=== PATIENT | male | born 1960 | race Caucasian/White ===

== ENCOUNTER 2016-09-03 14:25 | Inpatient (IN) | payer OTHER ==
[2016-09-03 18:14] VITALS: BMI 21.9
--- NOTE | 2016-09-03 19:13 | HP ---
CIWA Score - CIWA Score Nausea/Vomitin-Mild Nausea/No Vomiting Muscle Tremors: 4-Moderate,w/Arms Extend Anxiety: 4-Mod. Anxious/Guarded Agitation: 4-Moderately Restless Paroxysmal Sweats: 1-Minimal Palms Moist Orientation: 1-Uncertain about Date Tacttile Disturbances: 0-None Auditory Disturbances: 0-None Visual Disturbances: 0-None Headache: 0-None Present CIWA-Ar Total Score: 15 Admission ROS BHS - HPI Chief Complaint: WITHDRAWAL SX Allergies/Adverse Reactions: Allergies Allergy/AdvReac Type Severity Reaction Status Date / Time cat dander AdvReac Verified 09/03/16 19:12 History of Present Illness: 56 YEARS OLD MALE WITH LONG HISTORY OF ALCOHOL NICOTINE DEPENDENCE HAS ASTHMA ON METHADONE MAINTENANCE PROGRAM 190 MG HAS DEPRESSION IS ADMITTED TO DETOX Exam Limitations: No Limitations - Ebola screening Have you traveled outside of the country in the last 21 days: No Have you had contact with anyone from an Ebola affected area: No Have you been sick,other than usual withdrawal symptoms: No Do you have a fever: No - Review of Systems Constitutional: Chills, Changes in sleep, Weight Stable EENT: reports: Blurred Vision (NEED EYE GLASSES) Respiratory: reports: SOB with Exertion, Productive cough (WHITISH + YELLOWISH) Cardiac: reports: No Symptoms Reported GI: reports: Nausea, Poor Fluid Intake, Indigestion, Abdominal cramping : reports: No Symptoms Reported Musculoskeletal: reports: Back Pain, Joint Pain, Muscle Pain, Neck Pain Integumentary: reports: Change in Color (HANDS) Neuro: reports: Tremors Endocrine: reports: No Symptoms Reported Hematology: reports: No Symptoms Reported Psychiatric: reports: No Sypmtoms Reported, Judgement Intact, Depressed Other Systems: Reviewed and Negative Patient History - Patient Medical History Hx Anemia: No Hx Asthma: Yes Hx Chronic Obstructive Pulmonary Disease (COPD): Yes Hx Cancer: No Hx Cardiac Disorders: No Hx Congestive Heart Failure: No Hx Hypertension: No Hx Hypercholesterolemia: No Hx Pacemaker: No HX Cerebrovascular Accident: No Hx Seizures: No Hx Dementia: No Hx Diabetes: No Hx Gastrointestinal Disorders: No Hx Liver Disease: No Hx Genitourinary Disorders: No Hx Sexually Transmitted Disorders: No Hx Renal Disease (ESRD): No Hx Thyroid Disease: No Hx Human Immunodeficiency Virus (HIV): No Hx Hepatitis C: No Hx Depression: Yes Hx Suicide Attempt: No Hx Bipolar Disorder: No Hx Schizophrenia: No - Patient Surgical History Past Surgical History: Yes Hx Neurologic Surgery: No Hx Cataract Extraction: No Hx Cardiac Surgery: No Hx Lung Surgery: No Hx Breast Surgery: No Hx Breast Biopsy: No Hx Abdominal Surgery: Yes (LEFT INGUINAL HERNIA REPAIRED) Hx Appendectomy: No Hx Cholecystectomy: No Hx Genitourinary Surgery: No Hx Orthopedic Surgery: No Anesthesia Reaction: No - PPD History Previous Implant?: Yes Documented Results: Negative w/o proof Implanted On Prior R Admission?: No PPD to be Administered?: Yes - Smoking Cessation Smoking history: Current every day smoker Have you smoked in the past 12 months: Yes Aproximately how many cigarettes per day: 20 Cigars Per Day: 0 Hx Chewing Tobacco Use: No Initiated information on smoking cessation: Yes 'Breaking Loose' booklet given: 09/03/16 - Substance & Tx. History Hx Alcohol Use: Yes Hx Substance Use: No Substance Use Type: Alcohol, Heroin Hx Substance Use Treatment: No - Substances Abused Alcohol Route: Oral Frequency: Daily Amount used: 4 PINTS WISKY Age of first use: 14 Date of Last Use: 09/03/16 Family Disease History - Family Disease History Family Disease History: Other: Father ( ALCOHOL) Admission Physical Exam BHS - Vital Signs Vital Signs: Vital Signs - 24 hr 09/03/16 18:12 Temperature 96.8 F L Pulse Rate 87 Respiratory 20 Rate Blood Pressure 144/102 - Physical General Appearance: Yes: Appropriately Dressed, Mild Distress, Alcohol on Breath , Thin, Tremorous, Irritable, Sweating, Anxious HEENTM: Yes: Hearing grossly Normal, Normal ENT Inspection, Normocephalic, Normal Voice Respiratory: Yes: Chest Non-Tender, No Respiratory Distress, No Accessory Muscle Use, Wheezing, Expiration Neck: Yes: Supple, Trachea in good position Breast: Yes: Breasts Symetrical Cardiology: Yes: Regular Rhythm, Regular Rate, S1, S2 Abdominal: Yes: Non Tender, Soft Genitourinary: Yes: Within Normal Limits Back: Yes: Normal Inspection Musculoskeletal: Yes: full range of Motion, Gait Steady Extremities: Yes: Normal Range of Motion, Non-Tender, Tremors Neurological: Yes: Alert, Motor Strength 5/5, Normal Response, Depressed Affect Integumentary: Yes: Warm Lymphatic: Yes: Within Normal Limits - Diagnostic (1) Alcohol dependence with uncomplicated withdrawal Current Visit: Yes Status: Acute (2) Methadone maintenance therapy patient Current Visit: Yes Status: Chronic Comment: 190 MG VERIFICATION PENDING (3) Nicotine dependence Current Visit: Yes Status: Acute Qualifiers: Nicotine product type: cigarettes Substance use status: in withdrawal Qualified Code(s): F17.213 - Nicotine dependence, cigarettes, with withdrawal (4) Asthma Current Visit: Yes Status: Chronic Qualifiers: Asthma severity: mild persistent Asthma complication type: with status asthmaticus Qualified Code(s): J45.32 - Mild persistent asthma with status asthmaticus (5) COPD (chronic obstructive pulmonary disease) Current Visit: Yes Status: Chronic Qualifiers: COPD type: emphysema Emphysema type: unilateral Qualified Code(s ): J43.0 - Unilateral pulmonary emphysema [MacLeod's syndrome] (6) Cat scratch of forearm Current Visit: Yes Status: Chronic Qualifiers: Encounter type: subsequent encounter Laterality: unspecified laterality Qualified Code(s): S50.819D - Abrasion of unspecified forearm , subsequent encounter; W55.03XD - Scratched by cat, subsequent encounter (7) Hypertension Current Visit: Yes Status: Chronic Qualifiers: Hypertension type: unspecified secondary hypertension Qualified Code (s): I15.9 - Secondary hypertension, unspecified; I15 - Secondary hypertension Comment: ALCOHOL RELATED (8) Depression (emotion) Current Visit: Yes Status: Suspected Qualifiers: Depression Type: dysthymia Qualified Code(s): F34.1 - Dysthymic disorder Cleared for Admission BHS - Detox or Rehab [facility] Level of Care: Medically Managed Detox Regimen/Protocol: Librium [facility] Breath Alcohol Content Breath Alcohol Content: 0.241 Urine Drug Screen - Results Drug Screen Negative: No Urine Drug Screen Results: MTD-Methadone
[2016-09-03] MEDS ORDERED: P-EPHED 60MG/TRIPROLIDI 2.5MG TABLET PO PRN (19:25)
[2016-09-03] MEDS ORDERED: MAG HYDROX/AL HYDROX/SIMETH 30 ML UNIT-DOSE CUP PO PRN (19:25)
[2016-09-03] MEDS ORDERED: LOPERAMIDE HCL 2 MG CAPSULE PO PRN (19:25)
[2016-09-03] MEDS ORDERED: MAGNESIUM CITRATE 300 ML BOTTLE PO PRN (19:25)
[2016-09-03] MEDS ORDERED: diphenhydrAMINE HCL 50 MG CAPSULE PO PRN (19:25)
[2016-09-03] MEDS ORDERED: chlordiazePOXIDE HCL 25 MG CAPSULE PO ONE (19:25)
[2016-09-03] MEDS ORDERED: hydrOXYzine PAMOATE 50 MG CAPSULE (FP) PO PRN (19:25)
[2016-09-03] MEDS ORDERED: MENTHOL/PHENOL 1 EACH UD MM PRN (19:25)
[2016-09-03] MEDS ORDERED: IBUPROFEN 400 MG TABLET (FP) PO PRN (19:25)
[2016-09-03] MEDS ORDERED: ACETAMINOPHEN 325 MG TABLET (FP) PO PRN (19:25)
[2016-09-03] MEDS ORDERED: guaiFENesin/D-METHORPHAN HB 10 ML UNIT-DOSE CUPS PO PRN (19:25)
[2016-09-03] MEDS ORDERED: ALBUTEROL SO4 6.7 GM HFA INHALER IH PRN (19:27)
[2016-09-03] MEDS ORDERED: ALBUTEROL SO4 2.5/IPRATROPIUM 0.5 INH SOL 3 ML VIAL.NEB. NEB PRN (19:27)
[2016-09-03] MEDS ORDERED: BACITRACIN 0.9 GM PACKET TP ONE (19:28)
[2016-09-03] MEDS ORDERED: cloNIDine HCL 0.1 MG TABLET PO PRN (19:33)
[2016-09-03 21:18] LABS: URINE APPEARANCE CLEAR; URINE BILIRUBIN NEGATIVE (NEGATIVE); URINE BLOOD NEGATIVE (NEGATIVE); URINE COLOR AMBER; URINE GLUCOSE (UA) NEGATIVE (NEGATIVE); URINE KETONE NEGATIVE (NEGATIVE); URINE LEUK ESTERASE NEGATIVE (NEGATIVE); URINE NITRITE NEGATIVE (NEGATIVE); URINE UROBILINOGEN 2.0 E.U/dl E.U./dl (0.2-1.0)
[2016-09-03 21:38] LABS: URINE PROTEIN 2+ (NEGATIVE)
[2016-09-03 21:44] LABS: URINE HYALINE CAST 48 /lpf; URINE MUCUS MANY; URINE RBC 3 /hpf (0-3); URINE WBC 9 /hpf (3-5)
[2016-09-03] MEDS: THIAMINE HCL 100 MG TABLET (FP) PO SCH (23:00)
[2016-09-03] MEDS: chlordiazePOXIDE HCL 25 MG CAPSULE PO SCH (23:02)
[2016-09-04] MEDS: chlordiazePOXIDE HCL 25 MG CAPSULE PO SCH ×4 (05:42→22:40)
[2016-09-04] MEDS ORDERED: METHADONE HCL 10 MG TABLET PO ONE (09:10)
[2016-09-04] MEDS ORDERED: METHADONE 160 MG, METHADONE 30 MG PO ONE (09:20)
[2016-09-04] MEDS ORDERED: METHADONE HCL 40 MG DISPERSABLE TABLET ONE (09:56)
[2016-09-04] MEDS ORDERED: METHADONE HCL 10 MG TABLET ONE (09:56)
[2016-09-04] MEDS: NICOTINE 21 MG/24 HOURS TOPICAL PATCH TD SCH (09:58)
[2016-09-04] MEDS: PRENATAL VITAMINS W/ FOLIC ACID TABLET (FP) PO SCH (09:58)
[2016-09-04 10:06] LABS: MCHC 34.8 g/dl (32.0-35.9); MEAN CELL VOLUME 97.9 fl (80-96); MEAN PLT VOLUME 8.3 fl (7.5-11.1); PLATELET COUNT 121 K/MM3 (134-434); RDW 14.4 % (11.9-15.9); WHITE BLOOD COUNT 4.4 K/mm3 (4.0-10.0)
--- NOTE | 2016-09-04 11:01 | PN ---
[facility] CIWA - CIWA Score Nausea/Vomitin-No Nausea/No Vomiting Muscle Tremors: 4-Moderate,w/Arms Extend Anxiety: 4-Mod. Anxious/Guarded Agitation: 4-Moderately Restless Paroxysmal Sweats: 1-Minimal Palms Moist Orientation: 0-Oriented Tacttile Disturbances: 3-Moderate Itch/Numb/Burn Auditory Disturbances: 0-None Visual Disturbances: 0-None Headache: 0-None Present CIWA-Ar Total Score: 16 S Progress Note (SOAP) Subjective: ANXIETY,SWEATS,TREMORS,INTERMITTENT SLEEP. Objective: 09/04/16 11:01 Vital Signs Temperature 96.4 F L 09/04/16 09:47 Pulse Rate 85 09/04/16 09:47 Respiratory Rate 16 09/04/16 09:47 Blood Pressure 175/93 09/04/16 09:47 O2 Sat by Pulse Oximetry (%) Laboratory Last Values WBC 4.4 K/mm3 (4.0-10.0) 09/04/16 07:00 RBC 4.01 M/mm3 (4.00-5.60) 09/04/16 07:00 Hgb 13.7 GM/dL (11.7-16.9) 09/04/16 07:00 Hct 39.3 % (35.4-49) 09/04/16 07:00 MCV 97.9 fl (80-96) H 09/04/16 07:00 MCHC 34.8 g/dl (32.0-35.9) 09/04/16 07:00 RDW 14.4 % (11.9-15.9) 09/04/16 07:00 Plt Count 121 K/MM3 (134-434) L 09/04/16 07:00 MPV 8.3 fl (7.5-11.1) 09/04/16 07:00 Urine Color Muna 09/03/16 20:52 Urine Appearance Clear 09/03/16 20:52 Urine pH 5.0 (5.0-8.0) 09/03/16 20:52 Ur Specific [place] >= 1.030 (1.005-1.025) H 09/03/16 20:52 Urine Protein 2+ (NEGATIVE) H 09/03/16 20:52 Urine Glucose (UA) Negative (NEGATIVE) 09/03/16 20:52 Urine Ketones Negative (NEGATIVE) 09/03/16 20:52 Urine Blood Negative (NEGATIVE) 09/03/16 20:52 Urine Nitrite Negative (NEGATIVE) 09/03/16 20:52 Urine Bilirubin Negative (NEGATIVE) 09/03/16 20:52 Urine Urobilinogen 2.0 e.u/dl E.U./dl (0.2-1.0) 09/03/16 20:52 Ur Leukocyte Esterase Negative (NEGATIVE) 09/03/16 20:52 Urine RBC 3 /hpf (0-3) 09/03/16 20:52 Urine WBC 9 /hpf (3-5) 09/03/16 20:52 Hyaline Casts 48 /lpf 09/03/16 20:52 Urine Mucus Many 09/03/16 20:52 RPR Titer Nonreactive (NONREACTIVE) 09/04/16 07:00 Assessment: 09/04/16 11:01 WITHDRAWAL SX Plan: CONTINUE DETOX
[2016-09-04] MEDS ORDERED: cloNIDine HCL 0.1 MG TABLET PO ONE (11:03)
[2016-09-04 11:10] LABS: ALBUMIN 3.4 g/dl (3.4-5.0); ANION GAP 11 (8-16); CALCIUM 8.7 mg/dL (8.5-10.1); CO2 33 mmol/L (21-32); COCKROFT - GAULT 122.47; CREATININE 0.7 mg/dL (0.7-1.3); GLUCOSE,RANDOM 114 mg/dL (74-106); SGOT/AST 101 U/L (15-37); TOT PROT 6.4 g/dl (6.4-8.2)
[2016-09-04 11:11] LABS: ALK PHOS 115 U/L (45-117); SGPT/ALT 61 U/L (12-78)
--- NOTE | 2016-09-04 11:27 | CONSULT ---
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 Substance Abuse History: - Smoking Cessation. Smoking history: Current every day smoker. Have you smoked in the past 12 months: Yes. Aproximately how many cigarettes per day: 20. Cigars Per Day: 0. Hx Chewing Tobacco Use: No. Initiated information on smoking cessation: Yes. 'Breaking Loose' booklet given : 09/03/16. - Substance & Tx. History. Hx Alcohol Use: Yes. Hx Substance Use : No. Substance Use Type: Alcohol, Heroin. Hx Substance Use Treatment: No. - Substances Abused. Alcohol. Route: Oral. Frequency: Daily. Amount used: 4 PINTS WISKY. Age of first use: 14. Date of Last Use: 09/03/16. Confirmed by patient. Medical History: COPD,bronchial asthma,hypertension and a history of left inguinal herniorraphy. Psychiatric History: Patient denies history of psychiatric hospitalizations.Diagnosed with MDD.Mr Noble indicates past exposure to antidepressant drugs but could not recall names.Presents with an extended history of absence of psychiatric OPD care.Patient denies history of suicide attempts.Currently on methadone maintenance (190 mg/day). Physical/Sexual Abuse/Trauma History: Patient denies history of abuse. Additional Comment: Urine Drug Screen Results: MTD-Methadone.Noted. Mental Status Exam - Mental Status Exam Alert and Oriented to: Time, Place, Person Cognitive Function: Good Patient Appearance: Unkempt, Disheveled Mood: Nervous, Withdrawn, Anxious Affect: Mood Congruent, Constricted Patient Behavior: Fatigued, Cooperative Speech Pattern: Clear Voice Loudness: Normal Thought Process: Goal Oriented Thought Disorder: Not Present Hallucinations: Denies Suicidal Ideation: Denies Homicidal Ideation: Denies Insight/Judgement: Poor Sleep: Poorly, Difficulty falling asleep Appetite: Fair Muscle strength/Tone: Normal Gait/Station: Normal Psychiatric Findings - Problem List ([place] 1, 2,3) (1) Alcohol dependence with uncomplicated withdrawal Current Visit: Yes Status: Acute (2) Nicotine dependence Current Visit: Yes Status: Acute Qualifiers: Nicotine product type: cigarettes Substance use status: in withdrawal Qualified Code(s): F17.213 - Nicotine dependence, cigarettes, with withdrawal (3) Opioid dependence on agonist therapy Current Visit: Yes Status: Acute (4) Substance induced mood disorder Current Visit: Yes Status: Acute (5) Asthma Current Visit: Yes Status: Chronic Qualifiers: Asthma severity: mild persistent Asthma complication type: with status asthmaticus Qualified Code(s): J45.32 - Mild persistent asthma with status asthmaticus (6) COPD (chronic obstructive pulmonary disease) Current Visit: Yes Status: Chronic Qualifiers: COPD type: emphysema Emphysema type: unilateral Qualified Code(s ): J43.0 - Unilateral pulmonary emphysema [MacLeod's syndrome] (7) Cat scratch of forearm Current Visit: Yes Status: Chronic Qualifiers: Encounter type: subsequent encounter Laterality: unspecified laterality Qualified Code(s): S50.819D - Abrasion of unspecified forearm , subsequent encounter; W55.03XD - Scratched by cat, subsequent encounter (8) Hypertension Current Visit: Yes Status: Chronic Qualifiers: Hypertension type: unspecified secondary hypertension Qualified Code (s): I15.9 - Secondary hypertension, unspecified; I15 - Secondary hypertension Comment: ALCOHOL RELATED (9) Insomnia Current Visit: Yes Status: Acute - Initial Treatment Plan Initial Treatment Plan: Psychoeducation.detoxification.Ambien 10 mg po hs prn.Patient is informed of potential for parasomnias.He agrees with this careplan.Observation.
--- NOTE | 2016-09-04 11:45 | EKG ---
Test Reason : Blood Pressure : / mmHG Vent. Rate : 071 BPM Atrial Rate : 071 BPM P-R Int : 168 ms QRS Dur : 116 ms QT Int : 438 ms P-R-T Axes : 072 070 068 degrees QTc Int : 475 ms NORMAL SINUS RHYTHM INCOMPLETE RIGHT BUNDLE BRANCH BLOCK BORDERLINE ECG NO PREVIOUS ECGS AVAILABLE Confirmed by DOREEN LLANES, EMILY ([id number]) on 09/04/2016 11:44:53 AM Referred By: Confirmed By:EMILY LOGAN MD
[2016-09-04] MEDS: cloNIDine HCL 0.1 MG TABLET PO SCH (22:40)
[2016-09-04] MEDS: THIAMINE HCL 100 MG TABLET (FP) PO SCH (22:40)
[2016-09-04] MEDS: ZOLPIDEM TARTRATE 10 MG TABLET (PARK CARE ONLY) PO PRN (22:40)
[2016-09-05] MEDS: chlordiazePOXIDE HCL 25 MG CAPSULE PO PRN ×2 (03:01→09:34)
[2016-09-05] MEDS ORDERED: METHADONE HCL 40 MG DISPERSABLE TABLET ONE (04:34)
[2016-09-05] MEDS ORDERED: METHADONE HCL 10 MG TABLET ONE (04:34)
[2016-09-05] MEDS: METHADONE 160 MG, METHADONE 30 MG PO SCH (05:32)
[2016-09-05] MEDS: chlordiazePOXIDE HCL 25 MG CAPSULE PO SCH ×3 (05:32→17:18)
[2016-09-05] MEDS: NICOTINE POLACRILEX 4 MG GUM BC PRN (05:36)
[2016-09-05] MEDS ORDERED: METHADONE HCL 10 MG TABLET PO SCH (06:00)
[2016-09-05] MEDS: cloNIDine HCL 0.1 MG TABLET PO SCH ×2 (10:35→22:13)
[2016-09-05] MEDS: PRENATAL VITAMINS W/ FOLIC ACID TABLET (FP) PO SCH (10:35)
[2016-09-05] MEDS: NICOTINE 21 MG/24 HOURS TOPICAL PATCH TD SCH (10:35)
--- NOTE | 2016-09-05 11:16 | PN ---
[facility] CIWA - CIWA Score Nausea/Vomitin Muscle Tremors: 3 Anxiety: 3 Agitation: 2 Paroxysmal Sweats: 1-Minimal Palms Moist Orientation: 0-Oriented Tacttile Disturbances: 1-Very Mild Itch/Numbness Auditory Disturbances: 1-Very Mild Visual Disturbances: 1-Very Mild Sensitivity Headache: 2-Mild CIWA-Ar Total Score: 17 BHS Progress Note (SOAP) Subjective: ALERT,IRRITABLE,ANXIOUS,INTERRUPTED SLEEP,TREMOR Objective: 09/05/16 11:15 Vital Signs Temperature 97.5 F L 09/05/16 09:28 Pulse Rate 88 09/05/16 09:28 Respiratory Rate 18 09/05/16 09:28 Blood Pressure 134/84 09/05/16 09:28 O2 Sat by Pulse Oximetry (%) Laboratory Last Values WBC 4.4 K/mm3 (4.0-10.0) 09/04/16 07:00 RBC 4.01 M/mm3 (4.00-5.60) 09/04/16 07:00 Hgb 13.7 GM/dL (11.7-16.9) 09/04/16 07:00 Hct 39.3 % (35.4-49) 09/04/16 07:00 MCV 97.9 fl (80-96) H 09/04/16 07:00 MCHC 34.8 g/dl (32.0-35.9) 09/04/16 07:00 RDW 14.4 % (11.9-15.9) 09/04/16 07:00 Plt Count 121 K/MM3 (134-434) L 09/04/16 07:00 MPV 8.3 fl (7.5-11.1) 09/04/16 07:00 Sodium 140 mmol/L (136-145) 09/04/16 07:00 Potassium 3.7 mmol/L (3.5-5.1) 09/04/16 07:00 Chloride 96 mmol/L (98-107) L 09/04/16 07:00 Carbon Dioxide 33 mmol/L (21-32) H 09/04/16 07:00 Anion Gap 11 (8-16) 09/04/16 07:00 BUN 15 mg/dL (7-18) 09/04/16 07:00 Creatinine 0.7 mg/dL (0.7-1.3) 09/04/16 07:00 Creat Clearance w eGFR > 60 (>60) 09/04/16 07:00 Random Glucose 114 mg/dL (74-106) H 09/04/16 07:00 Calcium 8.7 mg/dL (8.5-10.1) 09/04/16 07:00 Total Bilirubin 1.0 mg/dL (0.2-1.0) 09/04/16 07:00 AST 101 U/L (15-37) H 09/04/16 07:00 ALT 61 U/L (12-78) 09/04/16 07:00 Alkaline Phosphatase 115 U/L (45-117) 09/04/16 07:00 Total Protein 6.4 g/dl (6.4-8.2) 09/04/16 07:00 Albumin 3.4 g/dl (3.4-5.0) 09/04/16 07:00 Urine Color Muna 09/03/16 20:52 Urine Appearance Clear 09/03/16 20:52 Urine pH 5.0 (5.0-8.0) 09/03/16 20:52 Ur Specific [place] >= 1.030 (1.005-1.025) H 09/03/16 20:52 Urine Protein 2+ (NEGATIVE) H 09/03/16 20:52 Urine Glucose (UA) Negative (NEGATIVE) 09/03/16 20:52 Urine Ketones Negative (NEGATIVE) 09/03/16 20:52 Urine Blood Negative (NEGATIVE) 09/03/16 20:52 Urine Nitrite Negative (NEGATIVE) 09/03/16 20:52 Urine Bilirubin Negative (NEGATIVE) 09/03/16 20:52 Urine Urobilinogen 2.0 e.u/dl E.U./dl (0.2-1.0) 09/03/16 20:52 Ur Leukocyte Esterase Negative (NEGATIVE) 09/03/16 20:52 Urine RBC 3 /hpf (0-3) 09/03/16 20:52 Urine WBC 9 /hpf (3-5) 09/03/16 20:52 Hyaline Casts 48 /lpf 09/03/16 20:52 Urine Mucus Many 09/03/16 20:52 RPR Titer Nonreactive (NONREACTIVE) 09/04/16 07:00 Assessment: 09/05/16 11:16 WITHDRAWAL SYMPTOM Plan: CONTINUE DETOX,REPEAT UA
[2016-09-05 18:05] LABS: URINE APPEARANCE CLEAR; URINE BILIRUBIN NEGATIVE (NEGATIVE); URINE BLOOD NEGATIVE (NEGATIVE); URINE COLOR YELLOW; URINE GLUCOSE (UA) NEGATIVE (NEGATIVE); URINE KETONE NEGATIVE (NEGATIVE); URINE NITRITE NEGATIVE (NEGATIVE); URINE PROTEIN NEGATIVE (NEGATIVE); URINE UROBILINOGEN NEGATIVE E.U./dl (0.2-1.0)
[2016-09-05 18:17] LABS: URINE LEUK ESTERASE 1+ (NEGATIVE)
[2016-09-05 18:29] LABS: URINE MUCUS MODERATE; URINE RBC 1 /hpf (0-3); URINE WBC 6 /hpf (3-5)
[2016-09-05] MEDS: ZOLPIDEM TARTRATE 10 MG TABLET (PARK CARE ONLY) PO PRN (22:13)
[2016-09-05] MEDS: chlordiazePOXIDE 5 MG CAPSULE PO SCH (22:13)
[2016-09-05] MEDS: THIAMINE HCL 100 MG TABLET (FP) PO SCH (22:14)
[2016-09-06] MEDS: chlordiazePOXIDE HCL 25 MG CAPSULE PO PRN (01:01)
[2016-09-06] MEDS ORDERED: METHADONE HCL 10 MG TABLET ONE (04:14)
[2016-09-06] MEDS ORDERED: METHADONE HCL 40 MG DISPERSABLE TABLET ONE (04:15)
[2016-09-06] MEDS: METHADONE 160 MG, METHADONE 30 MG PO SCH (05:44)
[2016-09-06] MEDS: chlordiazePOXIDE 5 MG CAPSULE PO SCH ×3 (05:44→17:24)
[2016-09-06] MEDS: NICOTINE POLACRILEX 4 MG GUM BC PRN ×2 (05:47→22:52)
[2016-09-06] MEDS: MAGNESIUM HYDROX 2400MG/30ML ORAL SUSPENSION 30 ML CUP PO PRN (09:06)
[2016-09-06] MEDS: PRENATAL VITAMINS W/ FOLIC ACID TABLET (FP) PO SCH (10:42)
[2016-09-06] MEDS: NICOTINE 21 MG/24 HOURS TOPICAL PATCH TD SCH (10:42)
[2016-09-06] MEDS: cloNIDine HCL 0.1 MG TABLET PO SCH ×2 (10:42→22:47)
[2016-09-06] MEDS: BACITRACIN 0.9 GM PACKET TP SCH ×2 (10:42→22:48)
--- NOTE | 2016-09-06 12:19 | PN ---
BHS Progress Note (SOAP) Subjective: Tremors, Stomach Cramping, Interrupted Sleep, Body Aches, Sweating. Objective: PT. A & O X 3, OBSERVED AMBULATING ON UNIT. PT. DENIES ANY UNUSUAL SYMPTOMS (FREQUENCY, URGENCY, INCONTINENCE, BURNING, PAIN ). 09/06/16 12:17 Vital Signs Temperature 97.0 F L 09/06/16 09:19 Pulse Rate 77 09/06/16 09:19 Respiratory Rate 18 09/06/16 09:19 Blood Pressure 106/65 09/06/16 09:19 O2 Sat by Pulse Oximetry (%) Laboratory Tests 09/03/16 09/04/16 09/04/16 20:52 07:00 07:00 WBC 4.4 RBC 4.01 Hgb 13.7 Hct 39.3 MCV 97.9 H MCHC 34.8 RDW 14.4 Plt Count 121 L MPV 8.3 Sodium 140 Potassium 3.7 Chloride 96 L Carbon Dioxide 33 H Anion Gap 11 BUN 15 Creatinine 0.7 Creat Clearance w eGFR > 60 Random Glucose 114 H Calcium 8.7 Total Bilirubin 1.0 AST 101 H ALT 61 Alkaline Phosphatase 115 Total Protein 6.4 Albumin 3.4 Urine Color Muna Urine Appearance Clear Urine pH 5.0 Ur Specific [place] >= 1.030 H Urine Protein 2+ H Urine Glucose (UA) Negative Urine Ketones Negative Urine Blood Negative Urine Nitrite Negative Urine Bilirubin Negative Urine Urobilinogen 2.0 e.u/dl Ur Leukocyte Esterase Negative Urine RBC 3 Urine WBC 9 Hyaline Casts 48 Urine Mucus Many RPR Titer 09/04/16 09/05/16 07:00 13:20 WBC RBC Hgb Hct MCV MCHC RDW Plt Count MPV Sodium Potassium Chloride Carbon Dioxide Anion Gap BUN Creatinine Creat Clearance w eGFR Random Glucose Calcium Total Bilirubin AST ALT Alkaline Phosphatase Total Protein Albumin Urine Color Yellow Urine Appearance Clear Urine pH 5.0 Ur Specific Hart 1.015 Urine Protein Negative Urine Glucose (UA) Negative Urine Ketones Negative Urine Blood Negative Urine Nitrite Negative Urine Bilirubin Negative Urine Urobilinogen Negative Ur Leukocyte Esterase 1+ H Urine RBC 1 Urine WBC 6 Hyaline Casts Urine Mucus Moderate RPR Titer Nonreactive LABS NOTED. RESULTS OF REPEAT UA (09/05/2016) NOTED. NO NEED FOR FURTHER ACTION AT THIS TIME. PATIENT ADVISED TO FOLLOW-UP WITH STATION HELPER AFTER DISCHARGE FROM DETOX. 09/06/16 12:19 09/06/16 14:52 09/06/16 14:53 09/06/16 14:56 09/06/16 14:59 Assessment: 09/06/16 12:17 WITHDRAWAL SYMPTOMS. Plan: CONTINUE DETOX. ADVISED PATIENT TO FOLLOW-UP WITH STATION HELPER AFTER DISCHARGE FROM DETOX FOR GENERAL MEDICAL ASSESSMENT AND FOR LOW ADMISSION PLATELET LEVEL AND FOR ELEVATED ADMISSION AST LEVEL.
[2016-09-06] MEDS: THIAMINE HCL 100 MG TABLET (FP) PO SCH (22:47)
[2016-09-06] MEDS: ZOLPIDEM TARTRATE 10 MG TABLET (PARK CARE ONLY) PO PRN (22:47)
[2016-09-06] MEDS: chlordiazePOXIDE HCL 10 MG CAPSULE PO SCH (22:48)
[2016-09-07] MEDS ORDERED: METHADONE HCL 10 MG TABLET ONE (04:40)
[2016-09-07] MEDS ORDERED: METHADONE HCL 40 MG DISPERSABLE TABLET ONE (04:40)
[2016-09-07] MEDS: chlordiazePOXIDE HCL 10 MG CAPSULE PO SCH ×2 (05:20→10:33)
[2016-09-07] MEDS: METHADONE 160 MG, METHADONE 30 MG PO SCH (05:20)
[2016-09-07] MEDS: NICOTINE POLACRILEX 4 MG GUM BC PRN (05:30)
[2016-09-07] MEDS: MAGNESIUM HYDROX 2400MG/30ML ORAL SUSPENSION 30 ML CUP PO PRN (05:30)
[2016-09-07 06:19] VITALS: PULSE 78
[2016-09-07 09:26] VITALS: BP 93/56; TEMP 96.8
[2016-09-07] MEDS: BACITRACIN 0.9 GM PACKET TP SCH (10:32)
[2016-09-07] MEDS: PRENATAL VITAMINS W/ FOLIC ACID TABLET (FP) PO SCH (10:33)
[2016-09-07] MEDS: NICOTINE 21 MG/24 HOURS TOPICAL PATCH TD SCH (10:33)
[2016-09-07] MEDS: cloNIDine HCL 0.1 MG TABLET PO SCH (10:33)
--- NOTE | 2016-09-07 10:59 | DS ---
[facility] Detox Discharge Summary Admission Date: 09/03/16 Discharge Date: 09/07/16 - History Present History: Alcohol Dependence, MMTP Pertinent Past History: Asthma COPD HTN - Physical Exam Results Vital Signs: Vital Signs Temperature 96.8 F L 09/07/16 09:25 Pulse Rate 78 09/07/16 09:25 Respiratory Rate 18 09/07/16 09:25 Blood Pressure 93/56 09/07/16 09:25 O2 Sat by Pulse Oximetry (%) Pertinent Admission Physical Exam Findings: Withdrawal sx. Laboratory Last Values WBC 4.4 K/mm3 (4.0-10.0) 09/04/16 07:00 RBC 4.01 M/mm3 (4.00-5.60) 09/04/16 07:00 Hgb 13.7 GM/dL (11.7-16.9) 09/04/16 07:00 Hct 39.3 % (35.4-49) 09/04/16 07:00 MCV 97.9 fl (80-96) H 09/04/16 07:00 MCHC 34.8 g/dl (32.0-35.9) 09/04/16 07:00 RDW 14.4 % (11.9-15.9) 09/04/16 07:00 Plt Count 121 K/MM3 (134-434) L 09/04/16 07:00 MPV 8.3 fl (7.5-11.1) 09/04/16 07:00 Sodium 140 mmol/L (136-145) 09/04/16 07:00 Potassium 3.7 mmol/L (3.5-5.1) 09/04/16 07:00 Chloride 96 mmol/L (98-107) L 09/04/16 07:00 Carbon Dioxide 33 mmol/L (21-32) H 09/04/16 07:00 Anion Gap 11 (8-16) 09/04/16 07:00 BUN 15 mg/dL (7-18) 09/04/16 07:00 Creatinine 0.7 mg/dL (0.7-1.3) 09/04/16 07:00 Creat Clearance w eGFR > 60 (>60) 09/04/16 07:00 Random Glucose 114 mg/dL (74-106) H 09/04/16 07:00 Calcium 8.7 mg/dL (8.5-10.1) 09/04/16 07:00 Total Bilirubin 1.0 mg/dL (0.2-1.0) 09/04/16 07:00 AST 101 U/L (15-37) H 09/04/16 07:00 ALT 61 U/L (12-78) 09/04/16 07:00 Alkaline Phosphatase 115 U/L (45-117) 09/04/16 07:00 Total Protein 6.4 g/dl (6.4-8.2) 09/04/16 07:00 Albumin 3.4 g/dl (3.4-5.0) 09/04/16 07:00 Urine Color Yellow 09/05/16 13:20 Urine Appearance Clear 09/05/16 13:20 Urine pH 5.0 (5.0-8.0) 09/05/16 13:20 Ur Specific [place] 1.015 (1.005-1.025) 09/05/16 13:20 Urine Protein Negative (NEGATIVE) 09/05/16 13:20 Urine Glucose (UA) Negative (NEGATIVE) 09/05/16 13:20 Urine Ketones Negative (NEGATIVE) 09/05/16 13:20 Urine Blood Negative (NEGATIVE) 09/05/16 13:20 Urine Nitrite Negative (NEGATIVE) 09/05/16 13:20 Urine Bilirubin Negative (NEGATIVE) 09/05/16 13:20 Urine Urobilinogen Negative E.U./dl (0.2-1.0) 09/05/16 13:20 Ur Leukocyte Esterase 1+ (NEGATIVE) H 09/05/16 13:20 Urine RBC 1 /hpf (0-3) 09/05/16 13:20 Urine WBC 6 /hpf (3-5) 09/05/16 13:20 Hyaline Casts 48 /lpf 09/03/16 20:52 Urine Mucus Moderate 09/05/16 13:20 RPR Titer Nonreactive (NONREACTIVE) 09/04/16 07:00 labs noted - Treatment Hospital Course: Detox Protocol Followed, Detoxed Safely, Responded well, Discharged Condition Good, Rehab Referral Accepted Patient has Accepted a Rehab Referral to: [facility] & IOP & 12 step meetings - Medication Discharge Medications: Ambulatory Orders Methadone [Dolophine -] 190 mg PO DAILY 09/03/16 - Diagnosis (1) Alcohol dependence with uncomplicated withdrawal Status: Acute (2) Insomnia Status: Acute (3) Nicotine dependence Status: Acute Qualifiers: Nicotine product type: cigarettes Substance use status: in withdrawal Qualified Code(s): F17.213 - Nicotine dependence, cigarettes, with withdrawal (4) Opioid dependence on agonist therapy Status: Acute (5) Substance induced mood disorder Status: Acute (6) Asthma Status: Chronic Qualifiers: Asthma severity: mild persistent Asthma complication type: with status asthmaticus Qualified Code(s): J45.32 - Mild persistent asthma with status asthmaticus (7) COPD (chronic obstructive pulmonary disease) Status: Chronic Qualifiers: COPD type: emphysema Emphysema type: panlobular Qualified Code(s ): J43.1 - Panlobular emphysema (8) Hypertension Status: Chronic Qualifiers: Hypertension type: unspecified secondary hypertension Qualified Code (s): I15.9 - Secondary hypertension, unspecified; I15 - Secondary hypertension - AMA Did Patient Leave Against Medical Advice: No
== END 2016-09-07 10:15 | disposition home or self-care (01) | DRG 773 ==
LOC: YASAS 14:25 → Y3N 19:59
PROVIDERS: ADMIT Internal Medicine; ATTEND Internal Medicine
PROC: HZ2ZZZZ Detoxification Services for Substance Abuse Treatment (ICD-10-PCS; principal; 2016-09-03)
DX: F10.230 Alcohol dependence with withdrawal, uncomplicated (principal); F11.20 Opioid dependence, uncomplicated; F17.213 Nicotine dependence, cigarettes, with withdrawal; J45.32 Mild persistent asthma with status asthmaticus; J43.1 Panlobular emphysema; I15.9 Secondary hypertension, unspecified; G47.00 Insomnia, unspecified; S50.819D Abrasion of unspecified forearm, subsequent encounter; W55.03XD Scratched by cat, subsequent encounter
CPT/HCPCS: 36415; 80053; 81003; 81015; 85027; 86593; 93005; 93010

== ENCOUNTER 2016-10-23 10:53 | Inpatient (IN) | payer OTHER ==
[2016-10-23 12:57] VITALS: BMI 23.3
--- NOTE | 2016-10-23 13:14 | HP ---
Admission [facility] Chief Complaint: i need help to come to rehab from alcohol Allergies/Adverse Reactions: Allergies Allergy/AdvReac Type Severity Reaction Status Date / Time No Known Allergies Allergy Verified 10/23/16 13:09 History of Present Illness: this 56 years old male with alcohol dependence,seeking rehab ,last treatment [facility] 10/10/16 to 10/15/16 mmtp 120 mgs/day,last medicated today nicotine dependence hepatitis c longest period sobriety depression Exam Limitations: No Limitations - Ebola screening Have you traveled outside of the country in the last 21 days: No Have you had contact with anyone from an Ebola affected area: No Have you been sick,other than usual withdrawal symptoms: No Do you have a fever: No - Review of Systems Constitutional: No Symptoms Reported, Loss of Appetite, Malaise, Night Sweats, Changes in sleep, Weakness EENT: reports: No Symptoms Reported Respiratory: reports: No Symptoms reported Cardiac: reports: No Symptoms Reported GI: reports: No Symptoms Reported : reports: No Symptoms Reported Musculoskeletal: reports: No Symptoms Reported Integumentary: reports: No Symptoms Reported Neuro: reports: No Symptoms reported Endocrine: reports: No Symptoms Reported Hematology: reports: No Symptoms Reported Psychiatric: reports: Depressed Patient History - Patient Medical History Hx Anemia: No Hx Asthma: Yes (on albuerol inhaler) Hx Chronic Obstructive Pulmonary Disease (COPD): Yes Hx Cancer: No Hx Cardiac Disorders: No Hx Congestive Heart Failure: No Hx Hypertension: Yes (non comploiance) Hx Hypercholesterolemia: No Hx Pacemaker: No HX Cerebrovascular Accident: No Hx Seizures: No Hx Dementia: No Hx Diabetes: No Hx Gastrointestinal Disorders: No Hx Liver Disease: No Hx Genitourinary Disorders: No Hx Sexually Transmitted Disorders: No Hx Renal Disease (ESRD): No Hx Thyroid Disease: No Hx Human Immunodeficiency Virus (HIV): No Hx Hepatitis C: No Hx Depression: Yes Hx Suicide Attempt: No Hx Bipolar Disorder: No Hx Schizophrenia: No Other Medical History: no suicidal,no homicidal - Patient Surgical History Past Surgical History: Yes Hx Neurologic Surgery: No Hx Cataract Extraction: No Hx Cardiac Surgery: No Hx Lung Surgery: No Hx Breast Surgery: No Hx Breast Biopsy: No Hx Abdominal Surgery: Yes (LEFT INGUINAL HERNIA REPAIRED) Hx Appendectomy: No Hx Cholecystectomy: No Hx Genitourinary Surgery: No Hx Orthopedic Surgery: No Anesthesia Reaction: No - PPD History Previous Implant?: Yes Documented Results: Negative w/proof Implanted On Prior [facility] Admission?: Yes Date: 09/05/16 Results: 0 mm PPD to be Administered?: No - Smoking Cessation Smoking history: Current every day smoker Have you smoked in the past 12 months: Yes Aproximately how many cigarettes per day: 20 Cigars Per Day: 0 Hx Chewing Tobacco Use: No Initiated information on smoking cessation: Yes 'Breaking Loose' booklet given: 10/23/16 - Substance & Tx. History Hx Alcohol Use: Yes Hx Substance Use: No Substance Use Type: Alcohol Hx Substance Use Treatment: Yes ([facility] 10/10/16 to 10/15/16) - Substances Abused Alcohol Route: Oral Frequency: Daily Amount used: 3-4 PINTS WHISKEY Age of first use: 50 Date of Last Use: 10/22/16 Family Disease History - Family Disease History Family Disease History: Other: Father ( ALCOHOL) Admission Physical Exam [facility] - Vital Signs Vital Signs: Vital Signs - 24 hr 10/23/16 12:52 Temperature 96.3 F L Pulse Rate 80 Respiratory 18 Rate Blood Pressure 157/96 - Physical General Appearance: Yes: Within Normal Limits HEENTM: Yes: Hearing grossly Normal, Normal ENT Inspection, MARGARETH Respiratory: Yes: Lungs Clear, Normal Breath Sounds, No Respiratory Distress Neck: Yes: Within Normal Limits, Supple, Trachea in good position Breast: Yes: Within Normal Limits Cardiology: Yes: Within Normal Limits, Regular Rhythm, Regular Rate, S1, S2 Abdominal: Yes: Within Normal Limits, Normal Bowel Sounds, Non Tender, Flat, Soft, Surgical Scar Genitourinary: Yes: Within Normal Limits Back: Yes: Within Normal Limits Musculoskeletal: Yes: Within Normal Limits Extremities: Yes: Within Normal Limits Neurological: Yes: medical education manager II-XII NML intact, Fully Oriented, Alert, Motor Strength 5/5 Integumentary: Yes: Within Normal Limits Lymphatic: Yes: Within Normal Limits - Diagnostic (1) Asthma Current Visit: No Status: Chronic Qualifiers: Asthma severity: mild persistent Asthma complication type: with status asthmaticus Qualified Code(s): J45.32 - Mild persistent asthma with status asthmaticus (2) COPD (chronic obstructive pulmonary disease) Current Visit: No Status: Chronic Qualifiers: COPD type: emphysema Emphysema type: panlobular Qualified Code(s ): J43.1 - Panlobular emphysema (3) Hypertension Current Visit: No Status: Chronic Qualifiers: Hypertension type: unspecified secondary hypertension Qualified Code (s): I15.9 - Secondary hypertension, unspecified; I15 - Secondary hypertension Comment: ALCOHOL RELATED (4) Methadone maintenance therapy patient Current Visit: No Status: Chronic Comment: 190 MG VERIFICATION PENDING (5) Depression (emotion) Current Visit: No Status: Suspected Qualifiers: Depression Type: dysthymia Qualified Code(s): F34.1 - Dysthymic disorder (6) Alcohol dependence Current Visit: Yes Status: Acute (7) Hepatitis C Current Visit: Yes Status: Acute (8) Nicotine dependence Current Visit: No Status: Acute Qualifiers: Nicotine product type: cigarettes Substance use status: in withdrawal Qualified Code(s): F17.213 - Nicotine dependence, cigarettes, with withdrawal (9) Opioid dependence on agonist therapy Current Visit: No Status: Acute Cleared for Admission [facility] - Detox or Rehab Claeared for Rehab Admission: Yes S Breath Alcohol Content Breath Alcohol Content: 0 Urine Drug Screen - Results Urine Drug Screen Results: BZO-Benzodiazepines, MTD-Methadone
[2016-10-23] MEDS ORDERED: ACETAMINOPHEN 325 MG TABLET (FP) PO PRN (13:23)
[2016-10-23] MEDS ORDERED: MAGNESIUM HYDROX 2400MG/30ML ORAL SUSPENSION 30 ML CUP PO PRN (13:23)
[2016-10-23] MEDS ORDERED: MAGNESIUM CITRATE 300 ML BOTTLE PO PRN (13:23)
[2016-10-23] MEDS ORDERED: IBUPROFEN 400 MG TABLET (FP) PO PRN (13:23)
[2016-10-23] MEDS ORDERED: diphenhydrAMINE HCL 50 MG CAPSULE PO PRN (13:23)
[2016-10-23] MEDS ORDERED: LOPERAMIDE HCL 2 MG CAPSULE PO PRN (13:23)
[2016-10-23] MEDS ORDERED: MENTHOL/PHENOL 1 EACH UD MM PRN (13:23)
[2016-10-23] MEDS ORDERED: MAG HYDROX/AL HYDROX/SIMETH 30 ML UNIT-DOSE CUP PO PRN (13:23)
[2016-10-23] MEDS ORDERED: P-EPHED 60MG/TRIPROLIDI 2.5MG TABLET PO PRN (13:23)
--- NOTE | 2016-10-23 13:29 | HP ---
Admission [facility] Chief Complaint: for rehab from alcohol Allergies/Adverse Reactions: Allergies Allergy/AdvReac Type Severity Reaction Status Date / Time No Known Allergies Allergy Verified 10/23/16 13:09 - Ebola screening Have you traveled outside of the country in the last 21 days: No Have you had contact with anyone from an Ebola affected area: No Have you been sick,other than usual withdrawal symptoms: No Do you have a fever: No Patient History - Patient Medical History Hx Anemia: No Hx Asthma: Yes (on albuerol inhaler) Hx Chronic Obstructive Pulmonary Disease (COPD): Yes Hx Cancer: No Hx Cardiac Disorders: No Hx Congestive Heart Failure: No Hx Hypertension: Yes (non comploiance) Hx Hypercholesterolemia: No Hx Pacemaker: No HX Cerebrovascular Accident: No Hx Seizures: No Hx Dementia: No Hx Diabetes: No Hx Gastrointestinal Disorders: No Hx Liver Disease: No Hx Genitourinary Disorders: No Hx Sexually Transmitted Disorders: No Hx Renal Disease (ESRD): No Hx Thyroid Disease: No Hx Human Immunodeficiency Virus (HIV): No Hx Hepatitis C: No Hx Depression: Yes Hx Suicide Attempt: No Hx Bipolar Disorder: No Hx Schizophrenia: No Other Medical History: no suicidal,no homicidal - Patient Surgical History Past Surgical History: Yes Hx Neurologic Surgery: No Hx Cataract Extraction: No Hx Cardiac Surgery: No Hx Lung Surgery: No Hx Breast Surgery: No Hx Breast Biopsy: No Hx Abdominal Surgery: Yes (LEFT INGUINAL HERNIA REPAIRED) Hx Appendectomy: No Hx Cholecystectomy: No Hx Genitourinary Surgery: No Hx Orthopedic Surgery: No Anesthesia Reaction: No - PPD History Previous Implant?: Yes Documented Results: Negative w/proof Implanted On Prior [facility] Admission?: Yes Date: 09/05/16 Results: 0 mm - Smoking Cessation Smoking history: Current every day smoker Have you smoked in the past 12 months: Yes Aproximately how many cigarettes per day: 20 Cigars Per Day: 0 Hx Chewing Tobacco Use: No Initiated information on smoking cessation: Yes - Substances Abused Alcohol Route: Oral Frequency: Daily Amount used: 3-4 PINTS WHISKEY Age of first use: 50 Date of Last Use: 10/22/16 Family Disease History - Family Disease History Family Disease History: Other: Father ( ALCOHOL) Admission Physical Exam S - Vital Signs Vital Signs: Vital Signs - 24 hr 10/23/16 12:52 Temperature 96.3 F L Pulse Rate 80 Respiratory 18 Rate Blood Pressure 157/96 - Diagnostic (1) Asthma Current Visit: No Status: Chronic Qualifiers: Asthma severity: mild persistent Asthma complication type: with status asthmaticus Qualified Code(s): J45.32 - Mild persistent asthma with status asthmaticus (2) COPD (chronic obstructive pulmonary disease) Current Visit: No Status: Chronic Qualifiers: COPD type: emphysema Emphysema type: panlobular Qualified Code(s ): J43.1 - Panlobular emphysema (3) Hypertension Current Visit: No Status: Chronic Qualifiers: Hypertension type: unspecified secondary hypertension Qualified Code (s): I15.9 - Secondary hypertension, unspecified; I15 - Secondary hypertension Comment: ALCOHOL RELATED (4) Methadone maintenance therapy patient Current Visit: No Status: Chronic Comment: 190 MG VERIFICATION PENDING (5) Depression (emotion) Current Visit: No Status: Suspected Qualifiers: Depression Type: dysthymia Qualified Code(s): F34.1 - Dysthymic disorder (6) Alcohol dependence Current Visit: Yes Status: Acute (7) Hepatitis C Current Visit: Yes Status: Acute (8) Nicotine dependence Current Visit: No Status: Acute Qualifiers: Nicotine product type: cigarettes Substance use status: in withdrawal Qualified Code(s): F17.213 - Nicotine dependence, cigarettes, with withdrawal [facility] Breath Alcohol Content Breath Alcohol Content: 0 Urine Drug Screen - Results Urine Drug Screen Results: BZO-Benzodiazepines, MTD-Methadone
[2016-10-23 16:12] LABS: MCH 33.2 pg (25.7-33.7); MCHC 34.1 g/dl (32.0-35.9); MEAN CELL VOLUME 97.1 fl (80-96); MEAN PLT VOLUME 8.3 fl (7.5-11.1); PLATELET COUNT 222 K/MM3 (134-434); RDW 13.9 % (11.9-15.9); WHITE BLOOD COUNT 4.7 K/mm3 (4.0-10.0)
[2016-10-23] MEDS: NICOTINE 21 MG/24 HOURS TOPICAL PATCH TD SCH (16:50)
[2016-10-23 16:52] LABS: ALBUMIN 3.5 g/dl (3.4-5.0); ANION GAP 6 (8-16); CALCIUM 8.4 mg/dL (8.5-10.1); CO2 34 mmol/L (21-32); CREATININE 0.7 mg/dL (0.7-1.3); GLUCOSE,RANDOM 102 mg/dL (74-106); SGOT/AST 67 U/L (15-37); SGPT/ALT 50 U/L (12-78)
[2016-10-23] MEDS: hydrOXYzine PAMOATE 50 MG CAPSULE (FP) PO PRN (16:54)
[2016-10-23 16:56] LABS: ALK PHOS 121 U/L (45-117); BILIRUBIN,TOTAL 0.8 mg/dL (0.2-1.0); TOT PROT 7.1 g/dl (6.4-8.2)
[2016-10-23] MEDS: THIAMINE HCL 100 MG TABLET (FP) PO SCH (21:19)
[2016-10-23] MEDS: BACITRACIN 0.9 GM PACKET TP SCH (21:19)
[2016-10-24] MEDS: hydrOXYzine PAMOATE 50 MG CAPSULE (FP) PO PRN ×3 (02:46→21:03)
[2016-10-24] MEDS: ALBUTEROL SO4 6.7 GM HFA INHALER IH PRN ×2 (02:48→21:04)
[2016-10-24] MEDS ORDERED: METHADONE HCL 40 MG DISPERSABLE TABLET PO ONE (08:08)
[2016-10-24] MEDS: BACITRACIN 0.9 GM PACKET TP SCH ×2 (09:37→21:03)
[2016-10-24] MEDS: NICOTINE 21 MG/24 HOURS TOPICAL PATCH TD SCH (09:37)
[2016-10-24] MEDS: PRENATAL VITAMINS W/ FOLIC ACID TABLET (FP) PO SCH (09:37)
--- NOTE | 2016-10-24 11:19 | HP ---
Psychiatrist Admission - Data Date of interview: 10/24/16 Admission source: [facility] Identifying data: This is the first 5N inpatient rehabilitation admission for this 56 year old male who is without children,domiciled and unemployed Medical History: COPD, bronchial asthma, history of left inguinal herniorraphy, HTN, smokes cigarettes 1-2 PPD. On MMTP 120 mg/daily. Psychiatric History: Patient reports was diagnosed with MDD long time ago, which got worse when he about 6 abraham ago, he reports past treatment with antdpressants but could not recall names, he denies history of psychiatric hospitalizations and denies history of suicidal attempts. He reports has been feeling depressed, fatiqued, isolative, hopeless with low energy level and wants to start treatment for depression. Physical/Sexual Abuse/Trauma History: Denies history of sexual, physical and verbal abuse. Vital Signs: Vital Signs - 24 hr 10/23/16 10/24/16 10/24/16 12:52 00:30 06:29 Temperature 96.3 F L 97.4 F L Pulse Rate 80 76 Respiratory 18 18 18 Rate Blood Pressure 157/96 154/93 Allergies/Adverse Reactions: Allergies Allergy/AdvReac Type Severity Reaction Status Date / Time No Known Allergies Allergy Verified 10/23/16 13:09 Date of last physical exam: 10/24/16 Concur with the findings of this exam: Yes - Substance Abuse/Tx History Hx Alcohol Use: Yes Hx Substance Use: No Substance Use Type: Alcohol (2-4 pins wisky daily) Hx Substance Use Treatment: Yes (detox and MMTP) - Admission Criteria Previous failed treatment: Yes Poor recovery environment: Yes Comorbidities: Yes Lacks judgement: Yes Mental Status Exam - Mental Status Exam Alert and Oriented to: Time, Place, Person Cognitive Function: Good Patient Appearance: Well Groomed Mood: Depressed, Sad Affect: Appropriate, Mood Congruent Patient Behavior: Appropriate, Cooperative Speech Pattern: Clear, Appropriate Voice Loudness: Normal Thought Process: Goal Oriented Thought Disorder: Not Present Hallucinations: Denies Suicidal Ideation: Denies Insight/Judgement: Fair Sleep: Fair Appetite: Good Muscle strength/Tone: Normal Gait/Station: Normal Psychiatric Findings - Problem List ([place] 1, 2,3) (1) Alcohol dependence Current Visit: Yes Status: Acute (2) Nicotine dependence Current Visit: No Status: Acute Qualifiers: Nicotine product type: cigarettes Substance use status: in withdrawal Qualified Code(s): F17.213 - Nicotine dependence, cigarettes, with withdrawal (3) Opioid dependence on agonist therapy Current Visit: No Status: Acute (4) Asthma Current Visit: No Status: Chronic Qualifiers: Asthma severity: mild persistent Asthma complication type: with status asthmaticus Qualified Code(s): J45.32 - Mild persistent asthma with status asthmaticus (5) MDD (major depressive disorder), recurrent episode Current Visit: Yes Status: Acute - Initial Treatment Plan Initial Treatment Plan: Patient was recommended to start Wellbutrin 100 mg po daily, indications and properties discussed with the patient, patient agreed with plans, will start medications and monitor response/progress.
[2016-10-24 14:49] LABS: URINE APPEARANCE CLEAR; URINE BILIRUBIN NEGATIVE (NEGATIVE); URINE BLOOD NEGATIVE (NEGATIVE); URINE COLOR YELLOW; URINE GLUCOSE (UA) NEGATIVE (NEGATIVE); URINE KETONE NEGATIVE (NEGATIVE); URINE NITRITE NEGATIVE (NEGATIVE); URINE PROTEIN NEGATIVE (NEGATIVE); URINE UROBILINOGEN NEGATIVE E.U./dl (0.2-1.0)
[2016-10-24 14:54] LABS: URINE LEUK ESTERASE 2+ (NEGATIVE)
[2016-10-24 15:04] LABS: URINE BACTERIA RARE /hpf (NONE SEEN); URINE MUCUS RARE; URINE RBC 1 /hpf (0-3); URINE WBC 24 /hpf (3-5)
[2016-10-24] MEDS: guaiFENesin/D-METHORPHAN HB 10 ML UNIT-DOSE CUPS PO PRN (21:03)
[2016-10-24] MEDS: THIAMINE HCL 100 MG TABLET (FP) PO SCH (21:03)
[2016-10-25] MEDS: hydrOXYzine PAMOATE 50 MG CAPSULE (FP) PO PRN ×4 (02:46→22:26)
[2016-10-25] MEDS: METHADONE HCL 40 MG DISPERSABLE TABLET PO SCH (06:18)
--- NOTE | 2016-10-25 07:13 | PN ---
[facility] Progress Note Note: Abnormal Lab Results 10/24/16 12:00 Ur Leukocyte Esterase 2+ H will repeat ua
[2016-10-25] MEDS: BACITRACIN 0.9 GM PACKET TP SCH ×2 (09:49→21:34)
[2016-10-25] MEDS: NICOTINE 21 MG/24 HOURS TOPICAL PATCH TD SCH (09:49)
[2016-10-25] MEDS: buPROPion HCL 100 MG TABLET PO SCH (09:49)
[2016-10-25] MEDS: PRENATAL VITAMINS W/ FOLIC ACID TABLET (FP) PO SCH (09:49)
[2016-10-25] MEDS: ALBUTEROL SO4 6.7 GM HFA INHALER IH PRN ×2 (09:50→18:05)
[2016-10-25 10:04] LABS: URINE APPEARANCE CLEAR; URINE BILIRUBIN NEGATIVE (NEGATIVE); URINE BLOOD NEGATIVE (NEGATIVE); URINE COLOR LTYELLOW; URINE GLUCOSE (UA) NEGATIVE (NEGATIVE); URINE KETONE NEGATIVE (NEGATIVE); URINE NITRITE NEGATIVE (NEGATIVE); URINE PROTEIN NEGATIVE (NEGATIVE)
[2016-10-25 10:51] LABS: URINE LEUK ESTERASE 1+ (NEGATIVE)
[2016-10-25 10:54] LABS: URINE MUCUS RARE; URINE RBC <1 /hpf (0-3); URINE WBC 3 /hpf (3-5)
--- NOTE | 2016-10-25 16:05 | EKG ---
Test Reason : Blood Pressure : / mmHG Vent. Rate : 081 BPM Atrial Rate : 081 BPM P-R Int : 222 ms QRS Dur : 112 ms QT Int : 412 ms P-R-T Axes : 076 065 073 degrees QTc Int : 478 ms SINUS RHYTHM WITH 1ST DEGREE A-V BLOCK POSSIBLE LEFT ATRIAL ENLARGEMENT BORDERLINE ECG WHEN COMPARED WITH ECG OF 03-SEP-2016 20:05, [place] INTERVAL HAS INCREASED Confirmed by JAME LLANES, DANIELA ([id number]) on 10/25/2016 4:05:15 PM Referred By: Confirmed By:DANIELA KILGORE MD
[2016-10-25] MEDS: THIAMINE HCL 100 MG TABLET (FP) PO SCH (21:34)
[2016-10-26] MEDS: METHADONE HCL 40 MG DISPERSABLE TABLET PO SCH (06:15)
[2016-10-26] MEDS: hydrOXYzine PAMOATE 50 MG CAPSULE (FP) PO PRN ×3 (06:17→22:02)
[2016-10-26] MEDS: ALBUTEROL SO4 6.7 GM HFA INHALER IH PRN (08:33)
[2016-10-26] MEDS: NICOTINE 21 MG/24 HOURS TOPICAL PATCH TD SCH (10:00)
[2016-10-26] MEDS: BACITRACIN 0.9 GM PACKET TP SCH ×2 (10:00→21:59)
[2016-10-26] MEDS: buPROPion HCL 100 MG TABLET PO SCH (10:00)
[2016-10-26] MEDS: PRENATAL VITAMINS W/ FOLIC ACID TABLET (FP) PO SCH (10:00)
[2016-10-26] MEDS: THIAMINE HCL 100 MG TABLET (FP) PO SCH (21:59)
[2016-10-27] MEDS: hydrOXYzine PAMOATE 50 MG CAPSULE (FP) PO PRN ×3 (01:49→21:39)
[2016-10-27] MEDS: METHADONE HCL 40 MG DISPERSABLE TABLET PO SCH (06:06)
[2016-10-27] MEDS: guaiFENesin/D-METHORPHAN HB 10 ML UNIT-DOSE CUPS PO PRN (08:55)
[2016-10-27] MEDS: buPROPion HCL 100 MG TABLET PO SCH (09:43)
[2016-10-27] MEDS: PRENATAL VITAMINS W/ FOLIC ACID TABLET (FP) PO SCH (09:43)
[2016-10-27] MEDS: NICOTINE 21 MG/24 HOURS TOPICAL PATCH TD SCH (09:43)
[2016-10-27] MEDS: BACITRACIN 0.9 GM PACKET TP SCH ×2 (09:43→21:39)
[2016-10-27] MEDS: THIAMINE HCL 100 MG TABLET (FP) PO SCH (21:39)
[2016-10-27] MEDS: ALBUTEROL SO4 6.7 GM HFA INHALER IH PRN (21:40)
[2016-10-28] MEDS: hydrOXYzine PAMOATE 50 MG CAPSULE (FP) PO PRN ×3 (02:35→21:06)
[2016-10-28] MEDS: METHADONE HCL 40 MG DISPERSABLE TABLET PO SCH (06:10)
[2016-10-28] MEDS: PRENATAL VITAMINS W/ FOLIC ACID TABLET (FP) PO SCH (09:49)
[2016-10-28] MEDS: NICOTINE 21 MG/24 HOURS TOPICAL PATCH TD SCH (09:49)
[2016-10-28] MEDS: buPROPion HCL 100 MG TABLET PO SCH (09:49)
[2016-10-28] MEDS: BACITRACIN 0.9 GM PACKET TP SCH ×2 (09:49→21:06)
[2016-10-28] MEDS: THIAMINE HCL 100 MG TABLET (FP) PO SCH (21:06)
[2016-10-28] MEDS: ALBUTEROL SO4 6.7 GM HFA INHALER IH PRN (21:07)
[2016-10-29] MEDS: METHADONE HCL 40 MG DISPERSABLE TABLET PO SCH (06:13)
[2016-10-29] MEDS: ALBUTEROL SO4 6.7 GM HFA INHALER IH PRN ×2 (06:16→21:32)
[2016-10-29] MEDS: buPROPion HCL 100 MG TABLET PO SCH (09:52)
[2016-10-29] MEDS: PRENATAL VITAMINS W/ FOLIC ACID TABLET (FP) PO SCH (09:52)
[2016-10-29] MEDS: hydrOXYzine PAMOATE 50 MG CAPSULE (FP) PO PRN ×2 (09:52→21:31)
[2016-10-29] MEDS: BACITRACIN 0.9 GM PACKET TP SCH ×2 (09:52→21:31)
[2016-10-29] MEDS: NICOTINE 21 MG/24 HOURS TOPICAL PATCH TD SCH (09:52)
[2016-10-29] MEDS: FLUOCINONIDE 0.05% CREAM (60 GM TUBE) TP SCH ×2 (10:15→21:32)
[2016-10-29] MEDS ORDERED: PT OWN MED DRAWER 7, Y5N ONE (10:19)
[2016-10-29] MEDS: THIAMINE HCL 100 MG TABLET (FP) PO SCH (21:31)
[2016-10-30] MEDS: hydrOXYzine PAMOATE 50 MG CAPSULE (FP) PO PRN ×3 (03:25→18:22)
[2016-10-30] MEDS: METHADONE HCL 40 MG DISPERSABLE TABLET PO SCH (06:08)
[2016-10-30] MEDS: PRENATAL VITAMINS W/ FOLIC ACID TABLET (FP) PO SCH (09:50)
[2016-10-30] MEDS: BACITRACIN 0.9 GM PACKET TP SCH ×2 (09:50→21:19)
[2016-10-30] MEDS: buPROPion HCL 100 MG TABLET PO SCH (09:50)
[2016-10-30] MEDS: NICOTINE 21 MG/24 HOURS TOPICAL PATCH TD SCH (09:50)
[2016-10-30] MEDS: FLUOCINONIDE 0.05% CREAM (60 GM TUBE) TP SCH ×2 (09:50→21:20)
[2016-10-30] MEDS: ALBUTEROL SO4 6.7 GM HFA INHALER IH PRN ×2 (09:51→21:22)
[2016-10-30] MEDS ORDERED: CYCLOBENZAPRINE HCL 10 MG TABLET (FP) PO PRN (10:31)
[2016-10-30] MEDS ORDERED: CYCLOBENZAPRINE HCL 10 MG TABLET (FP) PO ONE (10:34)
[2016-10-30] MEDS ORDERED: cloNIDine HCL 0.1 MG TABLET PO ONE (10:35)
--- NOTE | 2016-10-30 10:36 | PN ---
S Progress Note Note: withdrawal symptom will give clonidine 0.1 mg po bid and flexeril 10 mgs po tid prn for 72 hours
--- NOTE | 2016-10-30 10:41 | PN ---
S Progress Note Note: addendum please disrecard note 10.30 am ,belong to other patient
--- NOTE | 2016-10-30 10:50 | PN ---
[facility] Progress Note Note: earwax both left more than right treatment debrox ear drop both ears
[2016-10-30] MEDS: CARBAMIDE PEROXIDE 6.5% OTIC 15 ML BOTTLE AU SCH ×2 (11:52→21:20)
[2016-10-30] MEDS: THIAMINE HCL 100 MG TABLET (FP) PO SCH (21:20)
[2016-10-30] MEDS ORDERED: cloNIDine HCL 0.1 MG TABLET PO SCH (22:00)
[2016-10-31] MEDS: METHADONE HCL 40 MG DISPERSABLE TABLET PO SCH (06:05)
[2016-10-31] MEDS: NICOTINE 21 MG/24 HOURS TOPICAL PATCH TD SCH (09:59)
[2016-10-31] MEDS: BACITRACIN 0.9 GM PACKET TP SCH ×2 (10:00→21:57)
[2016-10-31] MEDS: PRENATAL VITAMINS W/ FOLIC ACID TABLET (FP) PO SCH (10:00)
[2016-10-31] MEDS: buPROPion HCL 100 MG TABLET PO SCH (10:00)
[2016-10-31] MEDS: FLUOCINONIDE 0.05% CREAM (60 GM TUBE) TP SCH ×2 (10:00→21:57)
[2016-10-31] MEDS: CARBAMIDE PEROXIDE 6.5% OTIC 15 ML BOTTLE AU SCH ×2 (10:00→21:57)
[2016-10-31] MEDS: hydrOXYzine PAMOATE 50 MG CAPSULE (FP) PO PRN ×2 (10:01→21:58)
[2016-10-31] MEDS: THIAMINE HCL 100 MG TABLET (FP) PO SCH (21:57)
[2016-11-01] MEDS: METHADONE HCL 40 MG DISPERSABLE TABLET PO SCH (06:10)
[2016-11-01] MEDS: hydrOXYzine PAMOATE 50 MG CAPSULE (FP) PO PRN ×3 (10:01→21:51)
[2016-11-01] MEDS: CARBAMIDE PEROXIDE 6.5% OTIC 15 ML BOTTLE AU SCH ×2 (10:01→21:51)
[2016-11-01] MEDS: BACITRACIN 0.9 GM PACKET TP SCH ×2 (10:01→21:51)
[2016-11-01] MEDS: buPROPion HCL 100 MG TABLET PO SCH (10:01)
[2016-11-01] MEDS: FLUOCINONIDE 0.05% CREAM (60 GM TUBE) TP SCH ×2 (10:01→21:51)
[2016-11-01] MEDS: PRENATAL VITAMINS W/ FOLIC ACID TABLET (FP) PO SCH (10:01)
[2016-11-01] MEDS: NICOTINE 21 MG/24 HOURS TOPICAL PATCH TD SCH (10:02)
--- NOTE | 2016-11-01 15:11 | PN ---
Psychiatric Progress Note Vital Signs: Vital Signs Period Temp Pulse Resp BP Sys/Harding Pulse Ox Last 24 Hr 97.7 F 89 16-18 85/56 Date of Session: 11/01/16 Chief Complaint:: progress update HPI: Patient is addressing alcohol, nicotine dependence comorbid MDD. Current Medications: Active Medications Generic Name Dose Route Start Last Admin Trade Name Freq PRN Reason Stop Dose Admin Acetaminophen 650 mg 10/23/16 13:23 Tylenol - PO Q4H PRN PAIN Al Hydroxide/Mg Hydroxide 30 ml 10/23/16 13:23 10/25/16 02:46 Mylanta Oral Suspension - PO 30 ml Q6H PRN Administration DYSPEPSIA Albuterol Sulfate 2 puff 10/23/16 13:39 10/30/16 21:22 Ventolin Hfa Inhaler - IH 2 puff Q4H PRN Administration SHORT OF BREATH/WHEEZING Bacitracin 0.9 gm 10/23/16 22:00 11/01/16 10:01 Bacitracin - TP 0.9 gm BID SAMANTHA Administration Bupropion HCl 150 mg 11/01/16 15:06 Wellbutrin - PO DAILY SAMANTHA Carbamide Perox/Anhydrous Glycerin 5 drop 10/30/16 11:00 11/01/16 10:01 Debrox - AU 5 drop BID SAMANTHA Administration Diphenhydramine HCl 50 mg 10/23/16 13:23 10/23/16 21:19 Benadryl - PO 50 mg HSMR1 PRN Administration INSOMNIA Eucalyptus/Menthol/Phenol/Sorbitol 1 each 10/23/16 13:23 Cepastat Lozenge - MM Q4H PRN SORE THROAT Fluocinonide 1 applic 10/29/16 10:00 11/01/16 10:01 Lidex 0.05% Cream - TP 1 applic BID SAMANTHA Administration Guaifenesin 10 ml 10/23/16 13:23 10/27/16 08:55 Robitussin Dm - PO 10 ml Q6H PRN Administration COUGH Hydroxyzine Pamoate 50 mg 10/23/16 13:23 11/01/16 10:01 Vistaril - PO 50 mg Q4H PRN Administration AGITATION Ibuprofen 400 mg 10/23/16 13:23 Motrin - PO Q6H PRN SEVERE PAIN Loperamide HCl 4 mg 10/23/16 13:23 Imodium - PO Q6H PRN DIARRHEA Magnesium Citrate 300 ml 10/23/16 13:23 Citroma - PO Q48H PRN CONSTIPATION Magnesium Hydroxide 30 ml 10/23/16 13:23 Milk Of Magnesia - PO DAILY PRN CONSTIPATION Methadone HCl 120 mg 10/31/16 06:00 11/01/16 06:10 Dolophine - PO 11/06/16 05:59 120 mg DAILY@0600 SAMANTHA Administration Nicotine 21 mg 10/23/16 13:36 11/01/16 10:02 Nicoderm Patch - TD 21 mg DAILY SAMANTHA Administration Multivit/Folic Acid/Iron 1 tab 10/24/16 10:00 11/01/16 10:01 Vitamins ([facility]) - PO 1 tab DAILY SAMANTHA Administration Pseudoephedrine/Triprolidine 1 combo 10/23/16 13:23 Actifed - PO TID PRN NASAL CONGESTION Thiamine HCl 100 mg 10/23/16 22:00 10/31/16 21:57 Vitamin B1 - PO 100 mg HS SAMANTHA Administration Medication(s) Change(s): increase Wellbutrin 150 mg po daily. Current Side Effect: No Lab tests ordered: No Lab tests reviewed: Yes Provider note:: Patient reports has been feeling "somewhat better", but still low energy, depressed and isolative, medication well tolerated. Psychoeducations and supportive therapy provided. Will increase Wellbutrin 150 mg poam, patient agreed with careplan, continue to monitor. Total face to face time:: 25 Mental Status Exam - Mental Status Exam Alert and Oriented to: Time, Place, Person Cognitive Function: Grossly Intact Patient Appearance: Well Groomed Mood: Depressed, Sad Affect: Appropriate, Mood Congruent Patient Behavior: Appropriate, Cooperative Speech Pattern: Appropriate Voice Loudness: Normal Thought Process: Intact, Goal Oriented Hallucinations: Denies Suicidal Ideation: Denies Homicidal Ideation: Denies Insight/Judgement: Fair Sleep: Fair Appetite: Good Muscle strength/Tone: Normal Gait/Station: Normal Psychiatric Treatment Plan - Problem List (1) Alcohol dependence Current Visit: Yes (2) Nicotine dependence Current Visit: Yes Qualifiers: Nicotine product type: cigarettes Substance use status: in withdrawal Qualified Code(s): F17.213 - Nicotine dependence, cigarettes, with withdrawal (3) Opioid dependence on agonist therapy Current Visit: Yes (4) Asthma Current Visit: Yes Qualifiers: Asthma severity: mild persistent Asthma complication type: with status asthmaticus Qualified Code(s): J45.32 - Mild persistent asthma with status asthmaticus (5) MDD (major depressive disorder), recurrent episode Current Visit: Yes
[2016-11-01] MEDS: THIAMINE HCL 100 MG TABLET (FP) PO SCH (21:51)
[2016-11-02] MEDS: hydrOXYzine PAMOATE 50 MG CAPSULE (FP) PO PRN ×3 (03:43→21:26)
[2016-11-02] MEDS: METHADONE HCL 40 MG DISPERSABLE TABLET PO SCH (06:08)
[2016-11-02] MEDS: BACITRACIN 0.9 GM PACKET TP SCH ×2 (10:16→21:26)
[2016-11-02] MEDS: NICOTINE 21 MG/24 HOURS TOPICAL PATCH TD SCH (10:16)
[2016-11-02] MEDS: CARBAMIDE PEROXIDE 6.5% OTIC 15 ML BOTTLE AU SCH ×2 (10:17→21:26)
[2016-11-02] MEDS: FLUOCINONIDE 0.05% CREAM (60 GM TUBE) TP SCH ×2 (10:17→21:26)
[2016-11-02] MEDS: PRENATAL VITAMINS W/ FOLIC ACID TABLET (FP) PO SCH (10:17)
[2016-11-02] MEDS: buPROPion HCL 75 MG TABLET PO SCH (10:17)
[2016-11-02] MEDS: THIAMINE HCL 100 MG TABLET (FP) PO SCH (21:26)
[2016-11-02] MEDS: ALBUTEROL SO4 6.7 GM HFA INHALER IH PRN (21:27)
[2016-11-03] MEDS: hydrOXYzine PAMOATE 50 MG CAPSULE (FP) PO PRN ×3 (06:17→21:32)
[2016-11-03] MEDS: METHADONE HCL 40 MG DISPERSABLE TABLET PO SCH (06:17)
[2016-11-03] MEDS: ALBUTEROL SO4 6.7 GM HFA INHALER IH PRN ×2 (10:14→21:32)
[2016-11-03] MEDS: BACITRACIN 0.9 GM PACKET TP SCH ×2 (10:14→21:31)
[2016-11-03] MEDS: CARBAMIDE PEROXIDE 6.5% OTIC 15 ML BOTTLE AU SCH ×2 (10:15→21:31)
[2016-11-03] MEDS: PRENATAL VITAMINS W/ FOLIC ACID TABLET (FP) PO SCH (10:15)
[2016-11-03] MEDS: NICOTINE 21 MG/24 HOURS TOPICAL PATCH TD SCH (10:15)
[2016-11-03] MEDS: buPROPion HCL 75 MG TABLET PO SCH (10:15)
[2016-11-03] MEDS: FLUOCINONIDE 0.05% CREAM (60 GM TUBE) TP SCH ×2 (10:15→21:31)
[2016-11-03] MEDS: THIAMINE HCL 100 MG TABLET (FP) PO SCH (21:31)
[2016-11-04] MEDS: METHADONE HCL 40 MG DISPERSABLE TABLET PO SCH (06:18)
[2016-11-04] MEDS: CARBAMIDE PEROXIDE 6.5% OTIC 15 ML BOTTLE AU SCH ×2 (10:08→21:29)
[2016-11-04] MEDS: BACITRACIN 0.9 GM PACKET TP SCH ×2 (10:08→21:29)
[2016-11-04] MEDS: FLUOCINONIDE 0.05% CREAM (60 GM TUBE) TP SCH ×2 (10:08→21:29)
[2016-11-04] MEDS: NICOTINE 21 MG/24 HOURS TOPICAL PATCH TD SCH (10:09)
[2016-11-04] MEDS: buPROPion HCL 75 MG TABLET PO SCH (10:09)
[2016-11-04] MEDS: PRENATAL VITAMINS W/ FOLIC ACID TABLET (FP) PO SCH (10:09)
[2016-11-04] MEDS: hydrOXYzine PAMOATE 50 MG CAPSULE (FP) PO PRN ×2 (10:09→21:29)
[2016-11-04] MEDS: THIAMINE HCL 100 MG TABLET (FP) PO SCH (21:29)
[2016-11-05] MEDS: METHADONE HCL 40 MG DISPERSABLE TABLET PO SCH (06:03)
[2016-11-05] MEDS: CARBAMIDE PEROXIDE 6.5% OTIC 15 ML BOTTLE AU SCH ×2 (10:12→21:38)
[2016-11-05] MEDS: PRENATAL VITAMINS W/ FOLIC ACID TABLET (FP) PO SCH (10:12)
[2016-11-05] MEDS: BACITRACIN 0.9 GM PACKET TP SCH ×2 (10:12→21:38)
[2016-11-05] MEDS: buPROPion HCL 75 MG TABLET PO SCH (10:12)
[2016-11-05] MEDS: NICOTINE 21 MG/24 HOURS TOPICAL PATCH TD SCH (10:12)
[2016-11-05] MEDS: ALBUTEROL SO4 6.7 GM HFA INHALER IH PRN (10:15)
[2016-11-05] MEDS: FLUOCINONIDE 0.05% CREAM (60 GM TUBE) TP SCH ×2 (10:55→21:39)
[2016-11-05] MEDS: THIAMINE HCL 100 MG TABLET (FP) PO SCH (21:38)
[2016-11-05] MEDS: hydrOXYzine PAMOATE 50 MG CAPSULE (FP) PO PRN (21:38)
[2016-11-06] MEDS ORDERED: METHADONE HCL 40 MG DISPERSABLE TABLET PO SCH (06:00)
[2016-11-06 07:05] VITALS: BP 111/72; PULSE 75; TEMP 97.3
[2016-11-06] MEDS: PRENATAL VITAMINS W/ FOLIC ACID TABLET (FP) PO SCH (10:20)
[2016-11-06] MEDS: BACITRACIN 0.9 GM PACKET TP SCH (10:20)
[2016-11-06] MEDS: CARBAMIDE PEROXIDE 6.5% OTIC 15 ML BOTTLE AU SCH (10:21)
--- NOTE | 2016-11-06 10:22 | PN ---
Psychiatric Progress Note Vital Signs: Vital Signs Period Temp Pulse Resp BP Sys/Harding Pulse Ox Last 24 Hr 97.3 F 75 18-18 111/72 Date of Session: 11/06/16 Chief Complaint:: discharge visit HPI: Patient is addressing alcohol, nicotine dependence comorbid MDD. ROS: WNL Current Medications: Active Medications Generic Name Dose Route Start Last Admin Trade Name Freq PRN Reason Stop Dose Admin Acetaminophen 650 mg 10/23/16 13:23 Tylenol - PO Q4H PRN PAIN Al Hydroxide/Mg Hydroxide 30 ml 10/23/16 13:23 10/25/16 02:46 Mylanta Oral Suspension - PO 30 ml Q6H PRN Administration DYSPEPSIA Albuterol Sulfate 2 puff 10/23/16 13:39 11/05/16 10:15 Ventolin Hfa Inhaler - IH 2 puff Q4H PRN Administration SHORT OF BREATH/WHEEZING Bacitracin 0.9 gm 10/23/16 22:00 11/05/16 21:38 Bacitracin - TP Not Given BID SAMANTHA Bupropion HCl 200 mg 11/06/16 10:15 Wellbutrin Xl - PO DAILY SAMANTHA Carbamide Perox/Anhydrous Glycerin 5 drop 10/30/16 11:00 11/05/16 21:38 Debrox - AU Not Given BID SAMANTHA Diphenhydramine HCl 50 mg 10/23/16 13:23 10/23/16 21:19 Benadryl - PO 50 mg HSMR1 PRN Administration INSOMNIA Eucalyptus/Menthol/Phenol/Sorbitol 1 each 10/23/16 13:23 Cepastat Lozenge - MM Q4H PRN SORE THROAT Fluocinonide 1 applic 10/29/16 10:00 11/05/16 21:39 Lidex 0.05% Cream - TP Not Given BID SAMANTHA Guaifenesin 10 ml 10/23/16 13:23 10/27/16 08:55 Robitussin Dm - PO 10 ml Q6H PRN Administration COUGH Hydroxyzine Pamoate 50 mg 10/23/16 13:23 11/05/16 21:38 Vistaril - PO 50 mg Q4H PRN Administration AGITATION Ibuprofen 400 mg 10/23/16 13:23 Motrin - PO Q6H PRN SEVERE PAIN Loperamide HCl 4 mg 10/23/16 13:23 Imodium - PO Q6H PRN DIARRHEA Magnesium Citrate 300 ml 10/23/16 13:23 Citroma - PO Q48H PRN CONSTIPATION Magnesium Hydroxide 30 ml 10/23/16 13:23 Milk Of Magnesia - PO DAILY PRN CONSTIPATION Methadone HCl 120 mg 11/06/16 06:00 11/06/16 06:17 Dolophine - PO 120 mg DAILY@0600 SAMANTHA Administration Nicotine 21 mg 10/23/16 13:36 11/05/16 10:12 Nicoderm Patch - TD 21 mg DAILY SAMANTHA Administration Multivit/Folic Acid/Iron 1 tab 10/24/16 10:00 11/05/16 10:12 Vitamins ([facility]) - PO 1 tab DAILY SAMANTHA Administration Pseudoephedrine/Triprolidine 1 combo 10/23/16 13:23 Actifed - PO TID PRN NASAL CONGESTION Thiamine HCl 100 mg 10/23/16 22:00 11/05/16 21:38 Vitamin B1 - PO 100 mg HS SAMANTHA Administration Current Side Effect: No Lab tests ordered: No Lab tests reviewed: Yes Provider note:: Patient has completed today his treatment and met his goals, will continue to address his issues at [facility] wher he will f/u by a psychiatrist as well. Patient gained insights into his addiction and motivated to continue his abstinence, patient reports that he has been feeling much better since started Wellbutrin, script provided for Wellbutrin Er 200 mg po daily(patient asked to increase medication) and adjustment of dosage was needed for full improvement. Patient focused on importance of changing behavior for the utilization of supports to perevent relapses. Patient is stable for discharge today. Total face to face time:: 35 Mental Status Exam - Mental Status Exam Alert and Oriented to: Time, Place, Person Cognitive Function: Good Patient Appearance: Well Groomed Mood: Hopeful Affect: Appropriate, Mood Congruent Patient Behavior: Appropriate, Cooperative Speech Pattern: Clear, Appropriate Voice Loudness: Normal Thought Process: Intact Thought Disorder: Not Present Hallucinations: Denies Suicidal Ideation: Denies Homicidal Ideation: Denies Insight/Judgement: Fair Sleep: Fair Appetite: Good Muscle strength/Tone: Normal Gait/Station: Normal Psychiatric Treatment Plan - Problem List (1) Alcohol dependence Current Visit: Yes (2) Nicotine dependence Current Visit: Yes Qualifiers: Nicotine product type: cigarettes Substance use status: in withdrawal Qualified Code(s): F17.213 - Nicotine dependence, cigarettes, with withdrawal (3) Opioid dependence on agonist therapy Current Visit: Yes (4) Asthma Current Visit: Yes Qualifiers: Asthma severity: mild persistent Asthma complication type: with status asthmaticus Qualified Code(s): J45.32 - Mild persistent asthma with status asthmaticus (5) MDD (major depressive disorder), recurrent episode Current Visit: Yes
[2016-11-06] MEDS: FLUOCINONIDE 0.05% CREAM (60 GM TUBE) TP SCH (10:23)
[2016-11-06] MEDS: NICOTINE 21 MG/24 HOURS TOPICAL PATCH TD SCH (10:23)
[2016-11-06] MEDS: hydrOXYzine PAMOATE 50 MG CAPSULE (FP) PO PRN (10:24)
[2016-11-06] MEDS: buPROPion HCL 75 MG TABLET PO SCH (10:27)
== END 2016-11-06 11:00 | disposition home or self-care (01) | DRG 772 ==
LOC: YASAS 10:53 → Y5N 13:34
PROVIDERS: ADMIT Psychiatry & Neurology Psychiatry; ATTEND Psychiatry & Neurology Psychiatry
PROC: HZ42ZZZ Group Counseling for Substance Abuse Treatment, Cognitive-Behavioral (ICD-10-PCS; principal; 2016-11-06)
DX: F11.20 Opioid dependence, uncomplicated (principal); F10.20 Alcohol dependence, uncomplicated; F17.210 Nicotine dependence, cigarettes, uncomplicated; F33.2 Major depressive disorder, recurrent severe without psychotic features; F34.1 Dysthymic disorder; J45.32 Mild persistent asthma with status asthmaticus; J43.1 Panlobular emphysema; B18.2 Chronic viral hepatitis C; I15.9 Secondary hypertension, unspecified
CPT/HCPCS: 36415; 80053; 81003; 81015; 85027; 86593; 93005; 93010

== ENCOUNTER 2017-01-16 17:39 | Inpatient (IN) | payer OTHER ==
[2017-01-16 20:03] VITALS: BMI 23.6
--- NOTE | 2017-01-16 21:12 | HP ---
CIWA Score - CIWA Score Nausea/Vomitin Muscle Tremors: 3 Anxiety: 3 Agitation: 3 Paroxysmal Sweats: 1-Minimal Palms Moist Orientation: 0-Oriented Tacttile Disturbances: 2-Mild Itch/Numbness/Burn Auditory Disturbances: 2-Mild Harshness/Frighten Visual Disturbances: 1-Very Mild Sensitivity Headache: 2-Mild CIWA-Ar Total Score: 20 Admission ROS BHS - HPI Chief Complaint: I NEED HELP TO STOP DRINKING ALCOHOL Allergies/Adverse Reactions: Allergies Allergy/AdvReac Type Severity Reaction Status Date / Time No Known Allergies Allergy Verified 10/23/16 13:09 History of Present Illness: THIS 56 YEARS OLD MALE WITH ALCOHOL DEPENDENCE,SEEKING DETOX,LAST TREATMENT REHAB FROM 10/23/16 TO 11/06/16 [facility] MMTP 130 MGS/DAY,LAST MEDICATED TODAY ANXIETY AND DEPRESSION LONGEST PERIOD OF SOBRIETY 70 DAYS - Ebola screening Have you traveled outside of the country in the last 21 days: No Have you had contact with anyone from an Ebola affected area: No Have you been sick,other than usual withdrawal symptoms: No Do you have a fever: No - Review of Systems Constitutional: Loss of Appetite, Malaise, Night Sweats, Changes in sleep, Weakness EENT: reports: Tearing, Nose Congestion Respiratory: reports: No Symptoms reported Cardiac: reports: No Symptoms Reported GI: reports: Nausea, Poor Appetite, Vomiting, Abdominal cramping : reports: No Symptoms Reported Musculoskeletal: reports: Back Pain, Muscle Pain Integumentary: reports: Dryness Neuro: reports: Headache, Tremors Endocrine: reports: No Symptoms Reported Hematology: reports: No Symptoms Reported Psychiatric: reports: No Sypmtoms Reported, Judgement Intact, Mood/Affect Appropiate, Orientated x3, Anxious, Depressed Patient History - Patient Medical History Hx Anemia: No Hx Asthma: Yes (on albuerol inhaler) Hx Chronic Obstructive Pulmonary Disease (COPD): No Hx Cancer: No Hx Cardiac Disorders: No Hx Congestive Heart Failure: No Hx Hypertension: Yes (non comploiance) Hx Hypercholesterolemia: No Hx Pacemaker: No HX Cerebrovascular Accident: No Hx Seizures: No Hx Dementia: No Hx Diabetes: No Hx Gastrointestinal Disorders: No Hx Liver Disease: No Hx Genitourinary Disorders: No Hx Sexually Transmitted Disorders: No Hx Renal Disease (ESRD): No Hx Thyroid Disease: No Hx Human Immunodeficiency Virus (HIV): No Hx Hepatitis C: No Hx Depression: Yes (ANXIET) Hx Suicide Attempt: No Hx Bipolar Disorder: No Hx Schizophrenia: No Other Medical History: NO SUICIDAL,NO HOMICIDAL - Patient Surgical History Past Surgical History: Yes Hx Neurologic Surgery: No Hx Cataract Extraction: No Hx Cardiac Surgery: No Hx Lung Surgery: No Hx Breast Surgery: No Hx Breast Biopsy: No Hx Abdominal Surgery: Yes (LEFT INGUINAL HERNIA REPAIRED) Hx Appendectomy: No Hx Cholecystectomy: No Hx Genitourinary Surgery: No Hx Orthopedic Surgery: No Anesthesia Reaction: No - PPD History Previous Implant?: Yes Documented Results: Negative w/proof Date: 09/05/16 Results: 0 mm PPD to be Administered?: No - Smoking Cessation Smoking history: Former smoker Have you smoked in the past 12 months: Yes Aproximately how many cigarettes per day: 20 Cigars Per Day: 0 Hx Chewing Tobacco Use: No Initiated information on smoking cessation: Yes 'Breaking Loose' booklet given: 01/16/17 - Substance & Tx. History Hx Alcohol Use: Yes Hx Substance Use: No Substance Use Type: Alcohol Hx Substance Use Treatment: Yes ([facility] 10/23/16 TO 11/06/16 REHAB) - Substances Abused Alcohol Route: Oral Frequency: Daily Amount used: 4 [place] Age of first use: 14 Date of Last Use: 01/16/17 Family Disease History - Family Disease History Family Disease History: Other: Father ( ALCOHOL) Admission Physical Exam BHS - Vital Signs Vital Signs: Vital Signs - 24 hr 01/16/17 20:01 Temperature 96.8 F L Pulse Rate 74 Respiratory 20 Rate Blood Pressure 124/79 - Physical General Appearance: Yes: Moderate Distress, Tremorous, Irritable, Sweating, Anxious HEENTM: Yes: Normal ENT Inspection, [place], Pharynx Normal Respiratory: Yes: Lungs Clear, Normal Breath Sounds, No Respiratory Distress Neck: Yes: Within Normal Limits, Supple, Trachea in good position Breast: Yes: Within Normal Limits Cardiology: Yes: Within Normal Limits, Regular Rhythm, Regular Rate, S1, S2 Abdominal: Yes: Within Normal Limits, Non Tender, Flat, Soft Genitourinary: Yes: Within Normal Limits Back: Yes: Muscle Spasm Musculoskeletal: Yes: full range of Motion, Back pain, Muscle Pain Extremities: Yes: Normal Range of Motion, Tremors, Other (LOW BACK PAIN LEFT SCIATICA) Neurological: Yes: Fully Oriented, Alert, Motor Strength 5/5 Integumentary: Yes: Dry Lymphatic: Yes: Within Normal Limits - Diagnostic (1) Alcohol dependence with uncomplicated withdrawal Current Visit: Yes Status: Acute (2) Alcohol dependence Current Visit: No Status: Acute (3) Hepatitis C Current Visit: No Status: Acute (4) Opioid dependence on agonist therapy Current Visit: No Status: Acute (5) Asthma Current Visit: No Status: Chronic Qualifiers: Asthma severity: mild persistent Asthma complication type: with status asthmaticus (6) Hypertension Current Visit: No Status: Chronic Qualifiers: Hypertension type: unspecified secondary hypertension Qualified Code (s): I15.9 - Secondary hypertension, unspecified; I15.9 - Secondary hypertension , unspecified; I15.9 - Secondary hypertension, unspecified; I15 - Secondary hypertension Comment: ALCOHOL RELATED Cleared for Admission S - Detox or Rehab [facility] Level of Care: Medically Managed Detox Regimen/Protocol: Librium [facility] Breath Alcohol Content Breath Alcohol Content: 0.211 Urine Drug Screen - Results Drug Screen Negative: No Urine Drug Screen Results: MTD-Methadone
[2017-01-16] MEDS ORDERED: MAGNESIUM CITRATE 300 ML BOTTLE PO PRN (21:24)
[2017-01-16] MEDS ORDERED: MAG HYDROX/AL HYDROX/SIMETH 30 ML UNIT-DOSE CUP PO PRN (21:24)
[2017-01-16] MEDS ORDERED: P-EPHED 60MG/TRIPROLIDI 2.5MG TABLET PO PRN (21:24)
[2017-01-16] MEDS ORDERED: guaiFENesin/D-METHORPHAN HB 10 ML UNIT-DOSE CUPS PO PRN (21:24)
[2017-01-16] MEDS ORDERED: chlordiazePOXIDE HCL 25 MG CAPSULE PO ONE (21:24)
[2017-01-16] MEDS ORDERED: MAGNESIUM HYDROX 2400MG/30ML ORAL SUSPENSION 30 ML CUP PO PRN (21:24)
[2017-01-16] MEDS ORDERED: MENTHOL/PHENOL 1 EACH UD MM PRN (21:24)
[2017-01-16] MEDS ORDERED: LOPERAMIDE HCL 2 MG CAPSULE PO PRN (21:24)
[2017-01-16] MEDS ORDERED: chlordiazePOXIDE HCL 25 MG CAPSULE PO PRN (21:24)
[2017-01-16] MEDS ORDERED: ALBUTEROL SO4 18 GM HFA INHALER IH PRN (21:29)
[2017-01-16] MEDS: THIAMINE HCL 100 MG TABLET (FP) PO SCH (23:03)
[2017-01-16] MEDS: chlordiazePOXIDE HCL 25 MG CAPSULE PO SCH (23:03)
[2017-01-16] MEDS: diphenhydrAMINE HCL 50 MG CAPSULE PO PRN (23:04)
[2017-01-16] MEDS: IBUPROFEN 400 MG TABLET (FP) PO PRN (23:06)
[2017-01-16] MEDS: CYCLOBENZAPRINE HCL 10 MG TABLET (FP) PO PRN (23:06)
[2017-01-17 00:02] LABS: URINE APPEARANCE SLCLOUDY; URINE BILIRUBIN NEGATIVE (NEGATIVE); URINE BLOOD NEGATIVE (NEGATIVE); URINE COLOR DKYELLOW; URINE GLUCOSE (UA) NEGATIVE (NEGATIVE); URINE KETONE NEGATIVE (NEGATIVE); URINE LEUK ESTERASE NEGATIVE (NEGATIVE); URINE NITRITE NEGATIVE (NEGATIVE); URINE UROBILINOGEN NEGATIVE mg/dL (0.2-1.0)
[2017-01-17 00:04] LABS: URINE PROTEIN 1+ (NEGATIVE)
[2017-01-17 00:07] LABS: CALCIUM OXALATE CRYSTALS MODERATE /hpf (NONE SEEN); URINE HYALINE CAST 3 /lpf; URINE MUCUS MANY; URINE RBC 7 /hpf (0-3); URINE WBC 7 /hpf (3-5)
[2017-01-17] MEDS: CYCLOBENZAPRINE HCL 10 MG TABLET (FP) PO PRN ×3 (05:46→22:13)
[2017-01-17] MEDS: chlordiazePOXIDE HCL 25 MG CAPSULE PO SCH ×4 (05:46→22:12)
[2017-01-17] MEDS: IBUPROFEN 400 MG TABLET (FP) PO PRN ×3 (05:49→22:13)
[2017-01-17] MEDS ORDERED: METHADONE HCL 10 MG TABLET PO SCH (09:15)
[2017-01-17] MEDS ORDERED: METHADONE HCL 10 MG TABLET ONE (09:34)
[2017-01-17] MEDS ORDERED: METHADONE HCL 40 MG DISPERSABLE TABLET ONE (09:35)
[2017-01-17] MEDS: PRENATAL VITAMINS W/ FOLIC ACID TABLET (FP) PO SCH (09:41)
[2017-01-17] MEDS: METHADONE 120 MG, METHADONE 10 MG PO SCH (09:41)
[2017-01-17 10:14] LABS: MCH 32.2 pg (25.7-33.7); MCHC 34.5 g/dl (32.0-35.9); MEAN CELL VOLUME 93.2 fl (80-96); MEAN PLT VOLUME 7.8 fl (7.5-11.1); PLATELET COUNT 150 K/MM3 (134-434); RDW 16.3 % (11.9-15.9); WHITE BLOOD COUNT 3.6 K/mm3 (4.0-10.0)
[2017-01-17 11:27] LABS: ALBUMIN 3.3 g/dl (3.4-5.0); ALK PHOS 130 U/L (45-117); ANION GAP 9 (8-16); BILIRUBIN,TOTAL 0.8 mg/dL (0.2-1.0); CALCIUM 8.7 mg/dL (8.5-10.1); CO2 30 mmol/L (21-32); CREATININE 0.6 mg/dL (0.7-1.3); GLUCOSE,RANDOM 90 mg/dL (74-106); SGOT/AST 95 U/L (15-37); SGPT/ALT 80 U/L (12-78); TOT PROT 6.7 g/dl (6.4-8.2)
--- NOTE | 2017-01-17 11:38 | CONSULT ---
[facility] Psychiatric Consult - Data Date of interview: 01/17/17 Admission source: [facility] Identifying data: Mr Noble is a 56 years old male, unemployed with no source of income, living in [address] [facility] [address] Substance Abuse History: Reports history of alcohol use. He started drinking alcohol at age 14, consumes 4 pints of whiskey daily. Last drank on 01/16/17 Medical History: Significant for Asthma, HTN and history of surgery for left inguinal hernia repair. Smokes cigarretes 1ppd Psychiatric History: Reports seeing a psychiatrist at [place] after 911, was diagnosed with MDD and prescribed Celexa. Claims that he only took medication for one year. Reports that he did not see psychiatrist again till he was admitted to in detox & rehab in this facility in October 2016. He was treated with Wellbutrin and discharged on Wellbutrin 200 mg po daily. Reports that he has been off medication since he ran out of his 30 days supply provided to him on discharge. Denies history of previous hospitalization or suicidal attempt Physical/Sexual Abuse/Trauma History: Denies history of verbal, physical or sexual abuse as wel as DV relationship Additional Comment: Reports history of 2-3 previous misdemeanor arrests. No probation currently Mental Status Exam - Mental Status Exam Alert and Oriented to: Time, Place, Person Cognitive Function: Fair Mood: Depressed Affect: Appropriate Patient Behavior: Cooperative Speech Pattern: Clear Voice Loudness: Normal Thought Process: Intact Thought Disorder: Not Present Hallucinations: Denies Suicidal Ideation: Denies Homicidal Ideation: Denies Insight/Judgement: Poor Sleep: Fair Appetite: Good Muscle strength/Tone: Normal Gait/Station: Normal Psychiatric Findings - Problem List ([place] 1, 2,3) (1) MDD (major depressive disorder), recurrent episode Current Visit: No Status: Acute (2) Alcohol dependence with uncomplicated withdrawal Current Visit: Yes Status: Acute (3) Opioid dependence on agonist therapy Current Visit: No Status: Acute (4) Nicotine dependence Current Visit: No Status: Acute Qualifiers: Nicotine product type: cigarettes Substance use status: in withdrawal Qualified Code(s): F17.213 - Nicotine dependence, cigarettes, with withdrawal; F17.213 - Nicotine dependence, cigarettes, with withdrawal (5) Low back pain Current Visit: Yes Status: Acute (6) Sciatica, left side Current Visit: Yes Status: Acute (7) Hepatitis C Current Visit: No Status: Acute - Initial Treatment Plan Initial Treatment Plan: 1) Start wellbutrin 200 mg po daily and Ambien 10 mg po HS. 2) Continue inpatient detoxification
--- NOTE | 2017-01-17 12:16 | PN ---
[facility] CIWA - CIWA Score Nausea/Vomitin Muscle Tremors: 4-Moderate,w/Arms Extend Anxiety: 2 Agitation: 0-Normal Activity Paroxysmal Sweats: 3 Orientation: 0-Oriented Tacttile Disturbances: 2-Mild Itch/Numbness/Burn Auditory Disturbances: 3-Moderate Harsh/Frighten Visual Disturbances: 0-None Headache: 0-None Present CIWA-Ar Total Score: 17 S Progress Note (SOAP) Subjective: Tremors, Sweating, Stomach Cramping, Nausea, Body Aches. Objective: PT. A & O X 3, OBSERVED AMBULATING ON UNIT. NO ACUTE DISTRESS. PT. DENIES CHEST PAIN. 01/17/17 12:17 Vital Signs Temperature 96.7 F L 01/17/17 09:26 Pulse Rate 107 H 01/17/17 09:26 Respiratory Rate 20 01/17/17 09:26 Blood Pressure 147/84 01/17/17 09:26 O2 Sat by Pulse Oximetry (%) Laboratory Tests 01/16/17 01/17/17 01/17/17 23:45 07:15 07:15 WBC 3.6 L RBC 3.92 L Hgb 12.6 Hct 36.5 MCV 93.2 MCH 32.2 MCHC 34.5 RDW 16.3 H D Plt Count 150 D MPV 7.8 Sodium Potassium Chloride Carbon Dioxide Anion Gap BUN Creatinine Creat Clearance w eGFR Random Glucose Calcium Total Bilirubin AST ALT Alkaline Phosphatase Total Protein Albumin Urine Color Dkyellow Urine Appearance Slcloudy Urine pH 5.0 D Ur Specific [place] >= 1.030 H Urine Protein 1+ H Urine Glucose (UA) Negative Urine Ketones Negative Urine Blood Negative Urine Nitrite Negative Urine Bilirubin Negative Urine Urobilinogen Negative Urine RBC 7 Urine WBC 7 Calcium Oxalate Crystal Moderate Hyaline Casts 3 Urine Mucus Many RPR Titer Nonreactive 01/17/17 07:30 WBC RBC Hgb Hct MCV MCH MCHC RDW Plt Count MPV Sodium 139 Potassium 3.6 Chloride 100 Carbon Dioxide 30 Anion Gap 9 BUN 10 Creatinine 0.6 L Creat Clearance w eGFR > 60 Random Glucose 90 Calcium 8.7 Total Bilirubin 0.8 AST 95 H D ALT 80 H D Alkaline Phosphatase 130 H Total Protein 6.7 Albumin 3.3 L Urine Color Urine Appearance Urine pH Ur Specific [place] Urine Protein Urine Glucose (UA) Urine Ketones Urine Blood Urine Nitrite Urine Bilirubin Urine Urobilinogen Urine RBC Urine WBC Calcium Oxalate Crystal Hyaline Casts Urine Mucus RPR Titer LABS NOTED. Assessment: 01/17/17 12:17 WITHDRAWAL SYMPTOMS. Plan: CONTINUE DETOX. REPEAT UA AND AST FOR ADMISSION ABNORMALITIES. INCREASE DAILY PO FLUID INTAKE.
[2017-01-17] MEDS: buPROPion HCL 100 MG TABLET PO SCH (14:10)
--- NOTE | 2017-01-17 14:22 | EKG ---
Test Reason : Blood Pressure : / mmHG Vent. Rate : 071 BPM Atrial Rate : 071 BPM P-R Int : 176 ms QRS Dur : 116 ms QT Int : 402 ms P-R-T Axes : 072 070 066 degrees QTc Int : 436 ms NORMAL SINUS RHYTHM INCOMPLETE RIGHT BUNDLE BRANCH BLOCK BORDERLINE ECG WHEN COMPARED WITH ECG OF 23-OCT-2016 16:04, [place] INTERVAL HAS DECREASED Confirmed by DANIELA KILGORE MD ([id number]) on 01/17/2017 2:21:54 PM Referred By: Confirmed By:DANIELA KILGORE MD
[2017-01-17] MEDS: THIAMINE HCL 100 MG TABLET (FP) PO SCH (22:12)
[2017-01-17] MEDS: ZOLPIDEM TARTRATE 10 MG TABLET (PARK CARE ONLY) PO PRN (22:13)
[2017-01-18] MEDS ORDERED: METHADONE HCL 10 MG TABLET ONE (03:52)
[2017-01-18] MEDS ORDERED: METHADONE HCL 40 MG DISPERSABLE TABLET ONE (03:53)
[2017-01-18] MEDS: chlordiazePOXIDE HCL 25 MG CAPSULE PO SCH ×3 (05:56→17:55)
[2017-01-18] MEDS: METHADONE 120 MG, METHADONE 10 MG PO SCH (05:56)
[2017-01-18] MEDS: CYCLOBENZAPRINE HCL 10 MG TABLET (FP) PO PRN ×3 (06:02→22:14)
[2017-01-18] MEDS: IBUPROFEN 400 MG TABLET (FP) PO PRN ×3 (06:03→22:14)
[2017-01-18] MEDS: buPROPion HCL 100 MG TABLET PO SCH (10:22)
[2017-01-18] MEDS: PRENATAL VITAMINS W/ FOLIC ACID TABLET (FP) PO SCH (10:22)
[2017-01-18] MEDS ORDERED: ONDANSETRON *ODT* 4 MG TABLET SL PRN (10:29)
--- NOTE | 2017-01-18 13:05 | PN ---
S CIWA - CIWA Score Nausea/Vomitin Muscle Tremors: 3 Anxiety: 4-Mod. Anxious/Guarded Agitation: 1-Slight > Activity Paroxysmal Sweats: 6 Orientation: 0-Oriented Tacttile Disturbances: 3-Moderate Itch/Numb/Burn Auditory Disturbances: 0-None Visual Disturbances: 0-None Headache: 0-None Present CIWA-Ar Total Score: 20 BHS Progress Note (SOAP) Subjective: Nausea, Anxious, Body Aches, Sweating, Tremors. Pt. reporting skin irritation on buttocks. Pt. reports that affected area feels "itchy" and that this condition has occurred in the same area in the past. Objective: PT. A & O X 3, OBSERVED AMBULATING ON UNIT. NO ACUTE DISTRESS. PT. DENIES CHEST PAIN. ERYTHEMA NOTED ON BILATERAL BUTTOCK. NO BLEEDING OR UNUSUAL DISCHARGE NOTED. 01/18/17 13:00 Vital Signs Temperature 96.8 F L 01/18/17 10:17 Pulse Rate 72 01/18/17 10:17 Respiratory Rate 18 01/18/17 10:17 Blood Pressure 124/83 01/18/17 10:17 O2 Sat by Pulse Oximetry (%) Laboratory Tests 01/16/17 01/17/17 01/17/17 23:45 07:15 07:15 WBC 3.6 L RBC 3.92 L Hgb 12.6 Hct 36.5 MCV 93.2 MCH 32.2 MCHC 34.5 RDW 16.3 H D Plt Count 150 D MPV 7.8 Sodium Potassium Chloride Carbon Dioxide Anion Gap BUN Creatinine Creat Clearance w eGFR Random Glucose Calcium Total Bilirubin AST ALT Alkaline Phosphatase Total Protein Albumin Urine Color Dkyellow Urine Appearance Slcloudy Urine pH 5.0 D Ur Specific [place] >= 1.030 H Urine Protein 1+ H Urine Glucose (UA) Negative Urine Ketones Negative Urine Blood Negative Urine Nitrite Negative Urine Bilirubin Negative Urine Urobilinogen Negative Urine RBC 7 Urine WBC 7 Calcium Oxalate Crystal Moderate Hyaline Casts 3 Urine Mucus Many RPR Titer Nonreactive 01/17/17 07:30 WBC RBC Hgb Hct MCV MCH MCHC RDW Plt Count MPV Sodium 139 Potassium 3.6 Chloride 100 Carbon Dioxide 30 Anion Gap 9 BUN 10 Creatinine 0.6 L Creat Clearance w eGFR > 60 Random Glucose 90 Calcium 8.7 Total Bilirubin 0.8 AST 95 H D ALT 80 H D Alkaline Phosphatase 130 H Total Protein 6.7 Albumin 3.3 L Urine Color Urine Appearance Urine pH Ur Specific [place] Urine Protein Urine Glucose (UA) Urine Ketones Urine Blood Urine Nitrite Urine Bilirubin Urine Urobilinogen Urine RBC Urine WBC Calcium Oxalate Crystal Hyaline Casts Urine Mucus RPR Titer LABS NOTED. REPEAT UA RESULTS PENDING. 01/18/17 13:06 Assessment: 01/18/17 13:04 WITHDRAWAL SYMPTOMS. Plan: CONTINUE DETOX. ZOFRAN SL PRN FOR VOMITING. LOTRISONE CREAM TO BE APPLIED TO AFFECTED AREA ON BUTTOCKS BID. INCREASE DAILY PO FLUID INTAKE.
[2017-01-18] MEDS: CLOTRIMAZOLE/BETAMET DIPROP 15 GM TUBE TP SCH ×3 (14:05→22:12)
[2017-01-18] MEDS: ACETAMINOPHEN 325 MG TABLET (FP) PO PRN (15:40)
[2017-01-18] MEDS: THIAMINE HCL 100 MG TABLET (FP) PO SCH (22:12)
[2017-01-18] MEDS: chlordiazePOXIDE 5 MG CAPSULE PO SCH (22:13)
[2017-01-18] MEDS: ZOLPIDEM TARTRATE 10 MG TABLET (PARK CARE ONLY) PO PRN (22:13)
[2017-01-19] MEDS ORDERED: METHADONE HCL 10 MG TABLET ONE (04:33)
[2017-01-19] MEDS ORDERED: METHADONE HCL 40 MG DISPERSABLE TABLET ONE (04:33)
[2017-01-19] MEDS: METHADONE 120 MG, METHADONE 10 MG PO SCH (05:28)
[2017-01-19] MEDS: chlordiazePOXIDE 5 MG CAPSULE PO SCH ×3 (05:29→17:53)
[2017-01-19] MEDS: PRENATAL VITAMINS W/ FOLIC ACID TABLET (FP) PO SCH (10:11)
[2017-01-19] MEDS: CLOTRIMAZOLE/BETAMET DIPROP 15 GM TUBE TP SCH ×2 (10:11→22:32)
[2017-01-19] MEDS: buPROPion HCL 100 MG TABLET PO SCH (10:11)
[2017-01-19] MEDS: IBUPROFEN 400 MG TABLET (FP) PO PRN ×2 (10:12→17:56)
[2017-01-19] MEDS: CYCLOBENZAPRINE HCL 10 MG TABLET (FP) PO PRN ×2 (10:12→17:56)
[2017-01-19 10:57] LABS: ALBUMIN 3.3 g/dl (3.4-5.0); BILIRUBIN,DIRECT 0.2 mg/dL (0.0-0.2); BILIRUBIN,TOTAL 0.6 mg/dL (0.2-1.0); TOT PROT 6.6 g/dl (6.4-8.2)
[2017-01-19] MEDS: hydrOXYzine PAMOATE 50 MG CAPSULE (FP) PO PRN (17:58)
[2017-01-19 18:16] LABS: URINE APPEARANCE SLCLOUDY; URINE BILIRUBIN NEGATIVE (NEGATIVE); URINE BLOOD NEGATIVE (NEGATIVE); URINE COLOR YELLOW; URINE GLUCOSE (UA) NEGATIVE (NEGATIVE); URINE KETONE NEGATIVE (NEGATIVE); URINE NITRITE POSITIVE (NEGATIVE); URINE PROTEIN NEGATIVE (NEGATIVE); URINE UROBILINOGEN NEGATIVE mg/dL (0.2-1.0)
[2017-01-19 18:30] LABS: URINE BACTERIA FEW /hpf (NONE SEEN); URINE MUCUS RARE; URINE RBC 1 /hpf (0-3)
--- NOTE | 2017-01-19 20:00 | PN ---
S Progress Note (SOAP) Subjective: Nausea, Body Aches, Sweating. Objective: PT. A & O X 2 (DISORIENTED ABOUT DAY / DATE). PT. OBSERVED AMBULATING ON UNIT. PT. DENIES CHEST PAIN. 01/19/17 19:55 Vital Signs Temperature 98.2 F 01/19/17 18:18 Pulse Rate 75 01/19/17 18:18 Respiratory Rate 18 01/19/17 18:18 Blood Pressure 133/71 01/19/17 18:18 O2 Sat by Pulse Oximetry (%) Laboratory Tests 01/16/17 01/17/17 01/17/17 23:45 07:15 07:15 WBC 3.6 L RBC 3.92 L Hgb 12.6 Hct 36.5 MCV 93.2 MCH 32.2 MCHC 34.5 RDW 16.3 H D Plt Count 150 D MPV 7.8 Sodium Potassium Chloride Carbon Dioxide Anion Gap BUN Creatinine Creat Clearance w eGFR Random Glucose Calcium Total Bilirubin Direct Bilirubin AST ALT Alkaline Phosphatase Total Protein Albumin Urine Color Dkyellow Urine Appearance Slcloudy Urine pH 5.0 D Ur Specific [place] >= 1.030 H Urine Protein 1+ H Urine Glucose (UA) Negative Urine Ketones Negative Urine Blood Negative Urine Nitrite Negative Urine Bilirubin Negative Urine Urobilinogen Negative Urine RBC 7 Urine WBC 7 Calcium Oxalate Crystal Moderate Urine Bacteria Hyaline Casts 3 Urine Mucus Many RPR Titer Nonreactive 01/17/17 01/19/17 01/19/17 07:30 08:30 08:53 WBC RBC Hgb Hct MCV MCH MCHC RDW Plt Count MPV Sodium 139 Potassium 3.6 Chloride 100 Carbon Dioxide 30 Anion Gap 9 BUN 10 Creatinine 0.6 L Creat Clearance w eGFR > 60 Random Glucose 90 Calcium 8.7 Total Bilirubin 0.8 0.6 D Direct Bilirubin 0.2 AST 95 H D 76 H ALT 80 H D 71 Alkaline Phosphatase 130 H 134 H Total Protein 6.7 6.6 Albumin 3.3 L 3.3 L Urine Color Yellow Urine Appearance Slcloudy Urine pH 5.0 Ur Specific [place] Urine Protein Negative Urine Glucose (UA) Negative Urine Ketones Negative Urine Blood Negative Urine Nitrite Positive Urine Bilirubin Negative Urine Urobilinogen Negative Urine RBC 1 Urine WBC Calcium Oxalate Crystal Urine Bacteria Few Hyaline Casts Urine Mucus Rare RPR Titer LABS NOTED. RESULTS OF HEPATIC FUNCTION PANEL AND REPEAT UA NOTED. 01/19/17 19:58 Assessment: 01/19/17 19:59 WITHDRAWAL SYMPTOMS. Plan: CONTINUE DETOX.
[2017-01-19] MEDS: ZOLPIDEM TARTRATE 10 MG TABLET (PARK CARE ONLY) PO PRN (22:32)
[2017-01-19] MEDS: THIAMINE HCL 100 MG TABLET (FP) PO SCH (22:32)
[2017-01-19] MEDS: chlordiazePOXIDE HCL 10 MG CAPSULE PO SCH (22:33)
[2017-01-19] MEDS: ACETAMINOPHEN 325 MG TABLET (FP) PO PRN (22:35)
[2017-01-19 22:47] LABS: URINE LEUK ESTERASE 2+ (NEGATIVE)
[2017-01-20] MEDS: IBUPROFEN 400 MG TABLET (FP) PO PRN ×2 (02:57→18:00)
[2017-01-20] MEDS ORDERED: METHADONE HCL 10 MG TABLET ONE (03:56)
[2017-01-20] MEDS ORDERED: METHADONE HCL 40 MG DISPERSABLE TABLET ONE (03:57)
[2017-01-20] MEDS: METHADONE 120 MG, METHADONE 10 MG PO SCH (05:38)
[2017-01-20] MEDS: chlordiazePOXIDE HCL 10 MG CAPSULE PO SCH ×3 (05:39→17:59)
[2017-01-20] MEDS: ACETAMINOPHEN 325 MG TABLET (FP) PO PRN ×2 (05:39→22:25)
[2017-01-20] MEDS: CYCLOBENZAPRINE HCL 10 MG TABLET (FP) PO PRN ×2 (05:39→18:00)
--- NOTE | 2017-01-20 08:52 | DS ---
[facility] Detox Discharge Summary Admission Date: 01/16/17 Discharge Date: 01/21/17 - History Present History: Alcohol Dependence, Opioid Dependence, MMTP Additional Comments: Detox completed. PT is alert and oriented x 3 and in no acute distress. Pt instructed to follow up with PMD at [facility] for medical management. Pertinent Past History: COPD, HTN, Asthma, low back pain, sciatica (left side), nicotine dependence, Hep C. - Physical Exam Results Vital Signs: Vital Signs Temperature 98.6 F 01/20/17 05:00 Pulse Rate 90 01/20/17 05:00 Respiratory Rate 18 01/20/17 05:00 Blood Pressure 136/80 01/20/17 05:00 O2 Sat by Pulse Oximetry (%) Laboratory Last Values WBC 3.6 K/mm3 (4.0-10.0) L 01/17/17 07:15 RBC 3.92 M/mm3 (4.00-5.60) L 01/17/17 07:15 Hgb 12.6 GM/dL (11.7-16.9) 01/17/17 07:15 Hct 36.5 % (35.4-49) 01/17/17 07:15 MCV 93.2 fl (80-96) 01/17/17 07:15 MCH 32.2 pg (25.7-33.7) 01/17/17 07:15 MCHC 34.5 g/dl (32.0-35.9) 01/17/17 07:15 RDW 16.3 % (11.9-15.9) H D 01/17/17 07:15 Plt Count 150 K/MM3 (134-434) D 01/17/17 07:15 MPV 7.8 fl (7.5-11.1) 01/17/17 07:15 Sodium 139 mmol/L (136-145) 01/17/17 07:30 Potassium 3.6 mmol/L (3.5-5.1) 01/17/17 07:30 Chloride 100 mmol/L (98-107) 01/17/17 07:30 Carbon Dioxide 30 mmol/L (21-32) 01/17/17 07:30 Anion Gap 9 (8-16) 01/17/17 07:30 BUN 10 mg/dL (7-18) 01/17/17 07:30 Creatinine 0.6 mg/dL (0.7-1.3) L 01/17/17 07:30 Creat Clearance w eGFR > 60 (>60) 01/17/17 07:30 Random Glucose 90 mg/dL (74-106) 01/17/17 07:30 Calcium 8.7 mg/dL (8.5-10.1) 01/17/17 07:30 Total Bilirubin 0.6 mg/dL (0.2-1.0) D 01/19/17 08:30 Direct Bilirubin 0.2 mg/dL (0.0-0.2) 01/19/17 08:30 AST 76 U/L (15-37) H 01/19/17 08:30 ALT 71 U/L (12-78) 01/19/17 08:30 Alkaline Phosphatase 134 U/L (45-117) H 01/19/17 08:30 Total Protein 6.6 g/dl (6.4-8.2) 01/19/17 08:30 Albumin 3.3 g/dl (3.4-5.0) L 01/19/17 08:30 Urine Color Yellow 01/19/17 08:53 Urine Appearance Slcloudy 01/19/17 08:53 Urine pH 5.0 (5.0-8.0) 01/19/17 08:53 Ur Specific [place] 1.015 (1.005-1.025) 01/19/17 08:53 Urine Protein Negative (NEGATIVE) 01/19/17 08:53 Urine Glucose (UA) Negative (NEGATIVE) 01/19/17 08:53 Urine Ketones Negative (NEGATIVE) 01/19/17 08:53 Urine Blood Negative (NEGATIVE) 01/19/17 08:53 Urine Nitrite Positive (NEGATIVE) 01/19/17 08:53 Urine Bilirubin Negative (NEGATIVE) 01/19/17 08:53 Urine Urobilinogen Negative mg/dL (0.2-1.0) 01/19/17 08:53 Ur Leukocyte Esterase 2+ (NEGATIVE) H 01/19/17 08:53 Urine RBC 1 /hpf (0-3) 01/19/17 08:53 Urine WBC 7 /hpf (3-5) 01/16/17 23:45 Calcium Oxalate Crystal Moderate /hpf (NONE SEEN) 01/16/17 23:45 Urine Bacteria Few /hpf (NONE SEEN) 01/19/17 08:53 Hyaline Casts 3 /lpf 01/16/17 23:45 Urine Mucus Rare 01/19/17 08:53 RPR Titer Nonreactive (NONREACTIVE) 01/17/17 07:15 Labs reviewed, Pt has multiple comorbidities and will follow up PMD for medical management. Pertinent Admission Physical Exam Findings: Withdrawal sx - Treatment Hospital Course: Detox Protocol Followed, Detoxed Safely, Responded well, Discharged Condition Good Patient has Accepted a Rehab Referral to: [facility] rehab - Medication Discharge Medications: Ambulatory Orders Methadone [Dolophine -] 130 mg PO DAILY 09/03/16 Albuterol Sulfate Inhaler - [Ventolin HFA Inhaler -] 2 inh IH Q4H PRN #1 inh Bupropion HCl [Bupropion HCl ER] 200 mg PO DAILY #30 tablet.er 11/06/16 Bupropion HCl [Wellbutrin -] 150 mg PO DAILY #30 tablet 11/06/16 Bupropion HCl [Wellbutrin -] 200 mg PO DAILY #30 tablet 01/21/17 - Diagnosis (1) Alcohol dependence with uncomplicated withdrawal Status: Acute (2) Low back pain Status: Chronic (3) Sciatica, left side Status: Chronic (4) Hepatitis C Status: Chronic (5) Nicotine dependence Status: Acute Qualifiers: Nicotine product type: cigarettes Substance use status: in withdrawal Qualified Code(s): F17.213 - Nicotine dependence, cigarettes, with withdrawal; F17.213 - Nicotine dependence, cigarettes, with withdrawal (6) Opioid dependence on agonist therapy Status: Acute (7) Asthma Status: Chronic Qualifiers: Asthma severity: mild persistent Asthma complication type: with status asthmaticus (8) COPD (chronic obstructive pulmonary disease) Status: Chronic Qualifiers: COPD type: emphysema Emphysema type: panlobular Qualified Code(s ): J43.1 - Panlobular emphysema; J43.1 - Panlobular emphysema; J43.1 - Panlobular emphysema; J43.1 - Panlobular emphysema (9) Hypertension Status: Chronic Qualifiers: Hypertension type: unspecified secondary hypertension Qualified Code (s): I15.9 - Secondary hypertension, unspecified; I15.9 - Secondary hypertension , unspecified; I15.9 - Secondary hypertension, unspecified; I15 - Secondary hypertension (10) Methadone maintenance therapy patient Status: Chronic - AMA Did Patient Leave Against Medical Advice: No
[2017-01-20] MEDS: buPROPion HCL 100 MG TABLET PO SCH (10:09)
[2017-01-20] MEDS: PRENATAL VITAMINS W/ FOLIC ACID TABLET (FP) PO SCH (10:09)
[2017-01-20] MEDS: CLOTRIMAZOLE/BETAMET DIPROP 15 GM TUBE TP SCH ×2 (10:09→22:24)
--- NOTE | 2017-01-20 10:33 | PN ---
BHS Progress Note (SOAP) Subjective: Sweating,interrupted sleep,restless. Objective: 01/20/17 10:32 Vital Signs - 8 hr 01/20/17 01/20/17 03:55 05:00 Temperature 98.6 F Pulse Rate 90 Respiratory 18 18 Rate Blood Pressure 136/80 Laboratory Last Values WBC 3.6 K/mm3 (4.0-10.0) L 01/17/17 07:15 RBC 3.92 M/mm3 (4.00-5.60) L 01/17/17 07:15 Hgb 12.6 GM/dL (11.7-16.9) 01/17/17 07:15 Hct 36.5 % (35.4-49) 01/17/17 07:15 MCV 93.2 fl (80-96) 01/17/17 07:15 MCH 32.2 pg (25.7-33.7) 01/17/17 07:15 MCHC 34.5 g/dl (32.0-35.9) 01/17/17 07:15 RDW 16.3 % (11.9-15.9) H D 01/17/17 07:15 Plt Count 150 K/MM3 (134-434) D 01/17/17 07:15 MPV 7.8 fl (7.5-11.1) 01/17/17 07:15 Sodium 139 mmol/L (136-145) 01/17/17 07:30 Potassium 3.6 mmol/L (3.5-5.1) 01/17/17 07:30 Chloride 100 mmol/L (98-107) 01/17/17 07:30 Carbon Dioxide 30 mmol/L (21-32) 01/17/17 07:30 Anion Gap 9 (8-16) 01/17/17 07:30 BUN 10 mg/dL (7-18) 01/17/17 07:30 Creatinine 0.6 mg/dL (0.7-1.3) L 01/17/17 07:30 Creat Clearance w eGFR > 60 (>60) 01/17/17 07:30 Random Glucose 90 mg/dL (74-106) 01/17/17 07:30 Calcium 8.7 mg/dL (8.5-10.1) 01/17/17 07:30 Total Bilirubin 0.6 mg/dL (0.2-1.0) D 01/19/17 08:30 Direct Bilirubin 0.2 mg/dL (0.0-0.2) 01/19/17 08:30 AST 76 U/L (15-37) H 01/19/17 08:30 ALT 71 U/L (12-78) 01/19/17 08:30 Alkaline Phosphatase 134 U/L (45-117) H 01/19/17 08:30 Total Protein 6.6 g/dl (6.4-8.2) 01/19/17 08:30 Albumin 3.3 g/dl (3.4-5.0) L 01/19/17 08:30 Urine Color Yellow 01/19/17 08:53 Urine Appearance Slcloudy 01/19/17 08:53 Urine pH 5.0 (5.0-8.0) 01/19/17 08:53 Ur Specific [place] 1.015 (1.005-1.025) 01/19/17 08:53 Urine Protein Negative (NEGATIVE) 01/19/17 08:53 Urine Glucose (UA) Negative (NEGATIVE) 01/19/17 08:53 Urine Ketones Negative (NEGATIVE) 01/19/17 08:53 Urine Blood Negative (NEGATIVE) 01/19/17 08:53 Urine Nitrite Positive (NEGATIVE) 01/19/17 08:53 Urine Bilirubin Negative (NEGATIVE) 01/19/17 08:53 Urine Urobilinogen Negative mg/dL (0.2-1.0) 01/19/17 08:53 Ur Leukocyte Esterase 2+ (NEGATIVE) H 01/19/17 08:53 Urine RBC 1 /hpf (0-3) 01/19/17 08:53 Urine WBC 7 /hpf (3-5) 01/16/17 23:45 Calcium Oxalate Crystal Moderate /hpf (NONE SEEN) 01/16/17 23:45 Urine Bacteria Few /hpf (NONE SEEN) 01/19/17 08:53 Hyaline Casts 3 /lpf 01/16/17 23:45 Urine Mucus Rare 01/19/17 08:53 RPR Titer Nonreactive (NONREACTIVE) 01/17/17 07:15 labs noted Assessment: 01/20/17 10:32 Withdrawal sx. Plan: Continue detox
[2017-01-20] MEDS: THIAMINE HCL 100 MG TABLET (FP) PO SCH (22:24)
[2017-01-20] MEDS: diphenhydrAMINE HCL 50 MG CAPSULE PO PRN (22:25)
[2017-01-21] MEDS ORDERED: METHADONE HCL 10 MG TABLET ONE (03:51)
[2017-01-21] MEDS ORDERED: METHADONE HCL 40 MG DISPERSABLE TABLET ONE (03:51)
[2017-01-21] MEDS: METHADONE 120 MG, METHADONE 10 MG PO SCH (05:13)
[2017-01-21] MEDS: hydrOXYzine PAMOATE 50 MG CAPSULE (FP) PO PRN (05:14)
[2017-01-21] MEDS: CYCLOBENZAPRINE HCL 10 MG TABLET (FP) PO PRN (05:14)
[2017-01-21] MEDS: PRENATAL VITAMINS W/ FOLIC ACID TABLET (FP) PO SCH (09:23)
[2017-01-21] MEDS: CLOTRIMAZOLE/BETAMET DIPROP 15 GM TUBE TP SCH (09:27)
[2017-01-21] MEDS: buPROPion HCL 100 MG TABLET PO SCH (09:27)
[2017-01-21 10:55] VITALS: BP 135/83; PULSE 103; TEMP 98.6
--- NOTE | 2017-01-21 16:12 | PN ---
Vicky Progress Note Note: Discharge done under my supervision and note reviewed with Beth Goldstein NP
== END 2017-01-21 11:18 | disposition home or self-care (01) | DRG 773 ==
LOC: YASAS 17:39 → Y3N 21:39
PROVIDERS: ADMIT Internal Medicine; ATTEND Internal Medicine
PROC: HZ2ZZZZ Detoxification Services for Substance Abuse Treatment (ICD-10-PCS; principal; 2017-01-16)
DX: F10.230 Alcohol dependence with withdrawal, uncomplicated (principal); F11.20 Opioid dependence, uncomplicated; F17.213 Nicotine dependence, cigarettes, with withdrawal; F33.9 Major depressive disorder, recurrent, unspecified; I10 Essential (primary) hypertension; M54.42 Lumbago with sciatica, left side; B18.2 Chronic viral hepatitis C; J45.22 Mild intermittent asthma with status asthmaticus; J43.1 Panlobular emphysema; Z91.14 Patient's other noncompliance with medication regimen
CPT/HCPCS: 36415; 80053; 80076; 81003; 81015; 85027; 86593; 93005; 93010

== ENCOUNTER 2017-05-30 12:09 | Inpatient (IN) | payer OTHER ==
[2017-05-30 12:36] VITALS: BMI 25.7
--- NOTE | 2017-05-30 14:09 | HP ---
CIWA Score - CIWA Score Nausea/Vomitin-No Nausea/No Vomiting Muscle Tremors: 5 Anxiety: 4-Mod. Anxious/Guarded Agitation: 4-Moderately Restless Paroxysmal Sweats: 1-Minimal Palms Moist Orientation: 0-Oriented Tacttile Disturbances: 2-Mild Itch/Numbness/Burn (RIGHT TOES) Auditory Disturbances: 0-None Visual Disturbances: 0-None Headache: 2-Mild CIWA-Ar Total Score: 18 Admission ROS S - HPI Chief Complaint: WITHDRAWAL SX Allergies/Adverse Reactions: Allergies Allergy/AdvReac Type Severity Reaction Status Date / Time No Known Allergies Allergy Verified 05/30/17 14:09 History of Present Illness: 56 YEARS OLD MALE WITH LONG HISTORY OF ALCOHOL NICOTINE DEPENDENCE HAS ASTHMA LEFT LEG SCIATIC NEUROPATHY, METHADONE 145 MG PO DAILY DEPRESSION IS ADMITTED TO DETOX Exam Limitations: No Limitations - Ebola screening Have you traveled outside of the country in the last 21 days: No (N) Have you had contact with anyone from an Ebola affected area: No Have you been sick,other than usual withdrawal symptoms: No Do you have a fever: No - Review of Systems Constitutional: Loss of Appetite, Changes in sleep, Unintentional Wgt. Loss, Unexplained wgt Loss EENT: reports: No Symptoms Reported Respiratory: reports: SOB with Exertion, Productive cough Cardiac: reports: No Symptoms Reported GI: reports: Nausea, Poor Appetite, Poor Fluid Intake, Abdominal cramping : reports: No Symptoms Reported Musculoskeletal: reports: No Symptoms Reported Integumentary: reports: No Symptoms Reported Neuro: reports: No Symptoms reported, Numbness (LEFT TOES) Endocrine: reports: No Symptoms Reported Hematology: reports: No Symptoms Reported Psychiatric: reports: Judgement Intact, Mood/Affect Appropiate, Anxious, Depressed Other Systems: Reviewed and Negative Patient History - Patient Medical History Hx Anemia: No Hx Asthma: Yes (on albuerol inhaler) Hx Chronic Obstructive Pulmonary Disease (COPD): No Hx Cancer: No Hx Cardiac Disorders: No Hx Congestive Heart Failure: No Hx Hypertension: Yes (BY HISTORY) Hx Hypercholesterolemia: No Hx Pacemaker: No HX Cerebrovascular Accident: No Hx Seizures: No Hx Dementia: No Hx Diabetes: No Hx Gastrointestinal Disorders: No Hx Liver Disease: No Hx Genitourinary Disorders: No Hx Sexually Transmitted Disorders: No Hx Renal Disease (ESRD): No Hx Thyroid Disease: No Hx Human Immunodeficiency Virus (HIV): No Hx Hepatitis C: No Hx Depression: Yes (ANXIET) Hx Suicide Attempt: No Hx Bipolar Disorder: No Hx Schizophrenia: No - Patient Surgical History Past Surgical History: Yes Hx Neurologic Surgery: No Hx Cataract Extraction: No Hx Cardiac Surgery: No Hx Lung Surgery: No Hx Breast Surgery: No Hx Breast Biopsy: No Hx Abdominal Surgery: Yes (LEFT INGUINAL HERNIA REPAIRED) Hx Appendectomy: No Hx Cholecystectomy: No Hx Genitourinary Surgery: No Hx Orthopedic Surgery: No Anesthesia Reaction: No - PPD History Previous Implant?: Yes Documented Results: Negative w/proof Implanted On Prior [facility] Admission?: Yes Date: 09/05/16 Results: 0 mm PPD to be Administered?: No - Smoking Cessation Smoking history: Current every day smoker Have you smoked in the past 12 months: Yes Aproximately how many cigarettes per day: 20 Cigars Per Day: 0 Hx Chewing Tobacco Use: No Initiated information on smoking cessation: Yes 'Breaking Loose' booklet given: 05/30/17 - Substance & Tx. History Hx Alcohol Use: Yes Hx Substance Use: Yes Substance Use Type: Alcohol, Tranquilizers Hx Substance Use Treatment: Yes (05/2017 [facility]) - Substances Abused Alcohol Route: Oral Frequency: Daily Amount used: WHISKY 4 PINTS Age of first use: 19 Date of Last Use: 05/30/17 Family Disease History - Family Disease History Family Disease History: Heart Disease: Brother, Other: Father ( ALCOHOL) Admission Physical Exam BHS - Vital Signs Vital Signs: Vital Signs - 24 hr 05/30/17 12:33 Temperature 97.5 F L Pulse Rate 72 Respiratory 18 Rate Blood Pressure 149/88 - Physical General Appearance: Yes: Appropriately Dressed, Mild Distress, Alcohol on Breath , Thin, Tremorous, Irritable, Sweating, Anxious HEENTM: Yes: Hearing grossly Normal, Normal ENT Inspection, Normocephalic, Normal Voice Respiratory: Yes: Chest Non-Tender, Lungs Clear, No Respiratory Distress, No Accessory Muscle Use, Wheezing, Inspiration Neck: Yes: Supple, Trachea in good position Breast: Yes: Breasts Symetrical Cardiology: Yes: Regular Rhythm, S1, S2, Tachycardia Abdominal: Yes: Non Tender, Soft Genitourinary: Yes: Within Normal Limits Back: Yes: Normal Inspection Musculoskeletal: Yes: full range of Motion, Gait Steady, Back pain, Muscle Pain (LEFT LEG) Extremities: Yes: Normal Inspection, Normal Range of Motion, Non-Tender, Tremors Neurological: Yes: Fully Oriented, Alert, Motor Strength 5/5, Normal Response, Depressed Affect Integumentary: Yes: Warm Lymphatic: Yes: Within Normal Limits - Diagnostic (1) Alcohol dependence with uncomplicated withdrawal Current Visit: Yes Status: Acute (2) Nicotine dependence Current Visit: Yes Status: Acute Qualifiers: Nicotine product type: cigarettes Substance use status: in withdrawal Qualified Code(s): F17.213 - Nicotine dependence, cigarettes, with withdrawal (3) Asthma Current Visit: Yes Status: Chronic Qualifiers: Asthma severity: mild Asthma persistence: intermittent Asthma complication type: with status asthmaticus Qualified Code(s): J45.22 - Mild intermittent asthma with status asthmaticus (4) COPD (chronic obstructive pulmonary disease) Current Visit: Yes Status: Chronic Qualifiers: COPD type: emphysema Emphysema type: panlobular Qualified Code(s): J43.1 - Panlobular emphysema (5) Hepatitis C Current Visit: Yes Status: Chronic Qualifiers: Viral hepatitis chronicity: chronic Hepatic coma status: without hepatic coma Qualified Code(s): B18.2 - Chronic viral hepatitis C (6) Hypertension Current Visit: Yes Status: Chronic Qualifiers: Hypertension type: unspecified secondary hypertension Qualified Code(s): I15.9 - Secondary hypertension, unspecified Comment: ALCOHOL RELATED (7) Methadone maintenance therapy patient Current Visit: Yes Status: Chronic Comment: 145 MG VERIFICATION PENDING (8) Sciatica, left side Current Visit: Yes Status: Chronic Cleared for Admission [facility] - Detox or Rehab [facility] Level of Care: Medically Managed Detox Regimen/Protocol: Librium [facility] Breath Alcohol Content Breath Alcohol Content: 0.154 Urine Drug Screen - Results Drug Screen Negative: No Urine Drug Screen Results: BZO-Benzodiazepines, MTD-Methadone
[2017-05-30] MEDS ORDERED: MAGNESIUM HYDROX 2400MG/30ML ORAL SUSPENSION 30 ML CUP PO PRN (14:18)
[2017-05-30] MEDS ORDERED: ACETAMINOPHEN 325 MG TABLET (FP) PO PRN (14:18)
[2017-05-30] MEDS ORDERED: MENTHOL/PHENOL 1 EACH UD MM PRN (14:18)
[2017-05-30] MEDS ORDERED: MAGNESIUM CITRATE 300 ML BOTTLE PO PRN (14:18)
[2017-05-30] MEDS ORDERED: P-EPHED 60MG/TRIPROLIDI 2.5MG TABLET PO PRN (14:18)
[2017-05-30] MEDS ORDERED: MAG HYDROX/AL HYDROX/SIMETH 30 ML UNIT-DOSE CUP PO PRN (14:18)
[2017-05-30] MEDS ORDERED: NICOTINE POLACRILEX 4 MG GUM BC PRN (14:18)
[2017-05-30] MEDS ORDERED: guaiFENesin/D-METHORPHAN HB 10 ML UNIT-DOSE CUPS PO PRN (14:18)
[2017-05-30] MEDS ORDERED: ALBUTEROL SO4 0.083% IH SOL 2.5 MG/3 ML VIAL.NEB. NEB PRN (14:21)
--- NOTE | 2017-05-30 16:50 | CONSULT ---
[facility] Psychiatric Consult - Data Date of interview: 05/30/17 Admission source: [facility] Identifying data: THIS IS 56 YEARS OLD MALE, SINGLE, UNEMPLOYED, ON PA, LIVING AT 3/4 HOUSE, WITH NO HISTORY OF PSYCHIATRIC HOSPITALIZATIONS, LONG HISTORY OF ALCOHOL AND NICOTINE DEPENDENCE Substance Abuse History: Smoking Cessation. Smoking history: Current every day smoker. Have you smoked in the past 12 months: Yes. Aproximately how many cigarettes per day: 20. Cigars Per Day: 0. Hx Chewing Tobacco Use: No. Initiated information on smoking cessation: Yes. 'Breaking Loose' booklet given : 05/30/17. - Substance & Tx. History. Hx Alcohol Use: Yes. Hx Substance Use : Yes. Substance Use Type: Alcohol, Tranquilizers. Hx Substance Use Treatment : Yes (05/2017 [facility]). - Substances Abused. Alcohol. Route: Oral. Frequency: Daily. Amount used: WHISKY 4 PINTS. Age of first use: 19. Date of Last Use: 05/30/17 Medical History: Asthma, COPD, LBP, , HepC+, HTN, MMTO HISTORY 145mg per day, Psychiatric History: Patient reports history of depression and anxiety, reports taking prior to admission: Wellbutrin 200mg poqd Physical/Sexual Abuse/Trauma History: Denies Additional Comment: Wellbutrin 200mg poqd Mental Status Exam - Mental Status Exam Alert and Oriented to: Person Cognitive Function: Fair Patient Appearance: Unkempt Mood: Anxious Affect: Mood Congruent Patient Behavior: Cooperative Speech Pattern: Appropriate Voice Loudness: Normal Thought Process: Circumstantial, Goal Oriented Thought Disorder: Being Controlled Hallucinations: Denies Suicidal Ideation: Denies Homicidal Ideation: Denies Insight/Judgement: Fair Sleep: Difficulty falling asleep Appetite: Weight loss Muscle strength/Tone: Normal Gait/Station: Normal Additional Comments: Wellbutrin 200mg poqd Psychiatric Findings - Problem List ([place] 1, 2,3) (1) Alcohol dependence with uncomplicated withdrawal Current Visit: Yes Status: Acute (2) Nicotine dependence Current Visit: Yes Status: Acute Qualifiers: Nicotine product type: cigarettes Substance use status: in withdrawal Qualified Code(s): F17.213 - Nicotine dependence, cigarettes, with withdrawal (3) Methadone maintenance therapy patient Current Visit: Yes Status: Chronic Comment: 145 MG VERIFICATION PENDING (4) MDD (major depressive disorder), recurrent episode Current Visit: No Status: Acute (5) Opioid dependence on agonist therapy Current Visit: No Status: Acute - Initial Treatment Plan Initial Treatment Plan: Wellbutrin 200mg poqd
[2017-05-30] MEDS: chlordiazePOXIDE HCL 25 MG CAPSULE PO PRN (18:11)
[2017-05-30] MEDS: ALBUTEROL SO4 18 GM HFA INHALER IH PRN ×2 (18:12→22:34)
[2017-05-30] MEDS: THIAMINE HCL 100 MG TABLET (FP) PO SCH (22:33)
[2017-05-30] MEDS: METHOCARBAMOL 500 MG TABLET PO SCH (22:33)
[2017-05-30] MEDS: GABAPENTIN 100 MG CAPSULE (FP) PO SCH (22:33)
[2017-05-30] MEDS: chlordiazePOXIDE HCL 25 MG CAPSULE PO SCH (22:33)
[2017-05-30 23:22] LABS: URINE APPEARANCE TURBID; URINE BILIRUBIN NEGATIVE (NEGATIVE); URINE BLOOD 1+ (NEGATIVE); URINE COLOR AMBER; URINE GLUCOSE (UA) NEGATIVE (NEGATIVE); URINE KETONE NEGATIVE (NEGATIVE); URINE LEUK ESTERASE TRACE (NEGATIVE); URINE NITRITE POSITIVE (NEGATIVE); URINE PROTEIN NEGATIVE (NEGATIVE); URINE UROBILINOGEN NEGATIVE mg/dL (0.2-1.0)
[2017-05-30 23:31] LABS: URINE BACTERIA FEW /hpf (NONE SEEN); URINE MUCUS RARE
[2017-05-31] MEDS: chlordiazePOXIDE HCL 25 MG CAPSULE PO PRN ×2 (00:45→15:26)
[2017-05-31] MEDS: chlordiazePOXIDE HCL 25 MG CAPSULE PO SCH ×4 (05:23→22:07)
[2017-05-31] MEDS: METHOCARBAMOL 500 MG TABLET PO SCH ×3 (05:23→22:10)
[2017-05-31] MEDS: GABAPENTIN 100 MG CAPSULE (FP) PO SCH ×3 (05:23→22:08)
[2017-05-31 09:59] LABS: HEMATOCRIT 38.2 % (35.4-49); HEMOGLOBIN 12.6 GM/dL (11.7-16.9); MCH 31.9 pg (25.7-33.7); MEAN CELL VOLUME 96.8 fl (80-96); MEAN PLT VOLUME 8.1 fl (7.5-11.1); PLATELET COUNT 229 K/MM3 (134-434); RBC 3.95 M/mm3 (4.00-5.60); RDW 14.8 % (11.9-15.9); WHITE BLOOD COUNT 6.5 K/mm3 (4.0-10.0)
[2017-05-31] MEDS ORDERED: METHADONE HCL 10 MG TABLET PO SCH (10:00)
[2017-05-31 10:07] LABS: CHLORIDE 103 mmol/L (98-107); POTASSIUM 3.9 mmol/L (3.5-5.1); SODIUM 141 mmol/L (136-145)
[2017-05-31 10:15] LABS: ALBUMIN 3.7 g/dl (3.4-5.0); ALK PHOS 127 U/L (45-117); ANION GAP 9 (8-16); BILIRUBIN,TOTAL 0.8 mg/dL (0.2-1.0); BLOOD UREA NITROGEN 14 mg/dL (7-18); CALCIUM 8.4 mg/dL (8.5-10.1); CO2 29 mmol/L (21-32); CREATININE 0.9 mg/dL (0.7-1.3); GLUCOSE,RANDOM 115 mg/dL (74-106); SGOT/AST 48 U/L (15-37); SGPT/ALT 38 U/L (12-78); TOT PROT 7.6 g/dl (6.4-8.2)
[2017-05-31] MEDS ORDERED: METHADONE 120 MG, METHADONE 20 MG, METHADONE 5 MG PO ONE (10:30)
[2017-05-31] MEDS ORDERED: METHADONE HCL 5 MG TABLET ONE (10:33)
[2017-05-31] MEDS ORDERED: METHADONE HCL 40 MG DISPERSABLE TABLET ONE (10:33)
[2017-05-31] MEDS ORDERED: METHADONE HCL 10 MG TABLET ONE (10:34)
[2017-05-31] MEDS: buPROPion HCL 100 MG TABLET PO SCH (10:43)
[2017-05-31] MEDS: NICOTINE 21 MG/24 HOURS TOPICAL PATCH TD SCH (10:50)
[2017-05-31] MEDS: PRENATAL VITAMINS W/ FOLIC ACID TABLET (FP) PO SCH (10:50)
--- NOTE | 2017-05-31 11:06 | PN ---
S CIWA - CIWA Score Nausea/Vomitin Muscle Tremors: 3 Anxiety: 3 Agitation: 2 Paroxysmal Sweats: 1-Minimal Palms Moist Orientation: 0-Oriented Tacttile Disturbances: 1-Very Mild Itch/Numbness Auditory Disturbances: 1-Very Mild Visual Disturbances: 0-None Headache: 2-Mild CIWA-Ar Total Score: 16 BHS Progress Note (SOAP) Subjective: alert,irritable,anxious,interrupted sleep,tremor,pain in the body and back Objective: 05/31/17 11:03 Vital Signs Temperature 97.7 F 05/31/17 06:00 Pulse Rate 85 05/31/17 06:00 Respiratory Rate 18 05/31/17 06:00 Blood Pressure 146/93 05/31/17 06:00 O2 Sat by Pulse Oximetry (%) ekg phuong,lvh no chest pain,no sob,no dizziness Laboratory Last Values WBC 6.5 K/mm3 (4.0-10.0) D 05/31/17 06:15 RBC 3.95 M/mm3 (4.00-5.60) L 05/31/17 06:15 Hgb 12.6 GM/dL (11.7-16.9) 05/31/17 06:15 Hct 38.2 % (35.4-49) 05/31/17 06:15 MCV 96.8 fl (80-96) H 05/31/17 06:15 MCH 31.9 pg (25.7-33.7) 05/31/17 06:15 MCHC 33.0 g/dl (32.0-35.9) 05/31/17 06:15 RDW 14.8 % (11.9-15.9) 05/31/17 06:15 Plt Count 229 K/MM3 (134-434) D 05/31/17 06:15 MPV 8.1 fl (7.5-11.1) 05/31/17 06:15 Sodium 141 mmol/L (136-145) 05/31/17 06:15 Potassium 3.9 mmol/L (3.5-5.1) 05/31/17 06:15 Chloride 103 mmol/L (98-107) 05/31/17 06:15 Carbon Dioxide 29 mmol/L (21-32) 05/31/17 06:15 Anion Gap 9 (8-16) 05/31/17 06:15 BUN 14 mg/dL (7-18) D 05/31/17 06:15 Creatinine 0.9 mg/dL (0.7-1.3) D 05/31/17 06:15 Creat Clearance w eGFR > 60 (>60) 05/31/17 06:15 Random Glucose 115 mg/dL (74-106) H D 05/31/17 06:15 Calcium 8.4 mg/dL (8.5-10.1) L 05/31/17 06:15 Total Bilirubin 0.8 mg/dL (0.2-1.0) D 05/31/17 06:15 AST 48 U/L (15-37) H D 05/31/17 06:15 ALT 38 U/L (12-78) D 05/31/17 06:15 Alkaline Phosphatase 127 U/L (45-117) H 05/31/17 06:15 Total Protein 7.6 g/dl (6.4-8.2) 05/31/17 06:15 Albumin 3.7 g/dl (3.4-5.0) 05/31/17 06:15 Urine Color Muna 05/30/17 23:10 Urine Appearance Turbid 05/30/17 23:10 Urine pH 5.0 (5.0-8.0) 05/30/17 23:10 Ur Specific [place] 1.019 (1.001-1.035) 05/30/17 23:10 Urine Protein Negative (NEGATIVE) 05/30/17 23:10 Urine Glucose (UA) Negative (NEGATIVE) 05/30/17 23:10 Urine Ketones Negative (NEGATIVE) 05/30/17 23:10 Urine Blood 1+ (NEGATIVE) H 05/30/17 23:10 Urine Nitrite Positive (NEGATIVE) 05/30/17 23:10 Urine Bilirubin Negative (NEGATIVE) 05/30/17 23:10 Urine Urobilinogen Negative mg/dL (0.2-1.0) 05/30/17 23:10 Ur Leukocyte Esterase Trace (NEGATIVE) 05/30/17 23:10 Urine WBC (Auto) 23 /hpf (3-5) 05/30/17 23:10 Urine RBC (Auto) 12 /hpf (0-3) 05/30/17 23:10 Urine Bacteria Few /hpf (NONE SEEN) 05/30/17 23:10 Urine Mucus Rare 05/30/17 23:10 Assessment: 05/31/17 11:04 withdrawal symptom
[2017-05-31] MEDS: IBUPROFEN 400 MG TABLET (FP) PO PRN (12:17)
[2017-05-31] MEDS: LOPERAMIDE HCL 2 MG CAPSULE PO PRN (15:24)
[2017-05-31] MEDS ORDERED: LIDOCAINE 5% TOPICAL PATCH TP ONE (16:00)
[2017-05-31] MEDS: THIAMINE HCL 100 MG TABLET (FP) PO SCH (22:07)
[2017-05-31] MEDS: LIDOCAINE PATCH REMOVAL MC SCH (22:08)
[2017-06-01] MEDS: LOPERAMIDE HCL 2 MG CAPSULE PO PRN (00:36)
[2017-06-01] MEDS: chlordiazePOXIDE HCL 25 MG CAPSULE PO PRN ×2 (00:36→14:34)
[2017-06-01] MEDS: chlordiazePOXIDE HCL 25 MG CAPSULE PO SCH ×3 (05:54→18:08)
[2017-06-01] MEDS ORDERED: METHADONE HCL 40 MG DISPERSABLE TABLET ONE (05:54)
[2017-06-01] MEDS ORDERED: METHADONE HCL 10 MG TABLET ONE (05:54)
[2017-06-01] MEDS ORDERED: METHADONE HCL 5 MG TABLET ONE (05:54)
[2017-06-01] MEDS: GABAPENTIN 100 MG CAPSULE (FP) PO SCH ×3 (05:55→22:54)
[2017-06-01] MEDS: METHADONE 120 MG, METHADONE 20 MG, METHADONE 5 MG PO SCH (05:55)
[2017-06-01] MEDS: METHOCARBAMOL 500 MG TABLET PO SCH ×3 (05:55→22:54)
[2017-06-01] MEDS: ALBUTEROL SO4 18 GM HFA INHALER IH PRN ×3 (05:58→18:12)
[2017-06-01] MEDS ORDERED: diphenhydrAMINE HCL 25 MG CAPSULE (FP) PO PRN (10:10)
[2017-06-01] MEDS: BACITRACIN 0.9 GM PACKET TP SCH ×2 (11:02→22:54)
[2017-06-01] MEDS: buPROPion HCL 100 MG TABLET PO SCH (11:02)
[2017-06-01] MEDS: PRENATAL VITAMINS W/ FOLIC ACID TABLET (FP) PO SCH (11:02)
[2017-06-01] MEDS: NICOTINE 21 MG/24 HOURS TOPICAL PATCH TD SCH (11:03)
[2017-06-01] MEDS: LIDOCAINE 5% TOPICAL PATCH TP SCH (11:06)
--- NOTE | 2017-06-01 12:21 | EKG ---
Test Reason : Blood Pressure : / mmHG Vent. Rate : 067 BPM Atrial Rate : 067 BPM P-R Int : 190 ms QRS Dur : 100 ms QT Int : 466 ms P-R-T Axes : 061 058 066 degrees QTc Int : 492 ms NORMAL SINUS RHYTHM MODERATE VOLTAGE CRITERIA FOR LVH, MAY BE NORMAL VARIANT PROLONGED QT ABNORMAL ECG WHEN COMPARED WITH ECG OF 16-JAN-2017 23:37, NO SIGNIFICANT CHANGE WAS FOUND Confirmed by JAME LLANES, DANIELA ([id number]) on 06/01/2017 12:21:02 PM Referred By: Confirmed By:DANIELA KILGORE MD
--- NOTE | 2017-06-01 12:39 | PN ---
S CIWA - CIWA Score Nausea/Vomitin Muscle Tremors: 3 Anxiety: 2 Agitation: 2 Paroxysmal Sweats: 1-Minimal Palms Moist Orientation: 0-Oriented Tacttile Disturbances: 1-Very Mild Itch/Numbness Auditory Disturbances: 1-Very Mild Visual Disturbances: 0-None Headache: 2-Mild CIWA-Ar Total Score: 15 BHS Progress Note (SOAP) Subjective: ALERT,IRRITABLE,ANXIOUS,INTERRUPTED SLEEP,TREMOR,ITCHING,ULCER BOTH FEET Objective: 06/01/17 12:37 Vital Signs Temperature 97.9 F 06/01/17 09:54 Pulse Rate 77 06/01/17 09:54 Respiratory Rate 20 06/01/17 09:54 Blood Pressure 121/68 06/01/17 09:54 O2 Sat by Pulse Oximetry (%) 06/01/17 12:37 Laboratory Last Values WBC 6.5 K/mm3 (4.0-10.0) D 05/31/17 06:15 RBC 3.95 M/mm3 (4.00-5.60) L 05/31/17 06:15 Hgb 12.6 GM/dL (11.7-16.9) 05/31/17 06:15 Hct 38.2 % (35.4-49) 05/31/17 06:15 MCV 96.8 fl (80-96) H 05/31/17 06:15 MCH 31.9 pg (25.7-33.7) 05/31/17 06:15 MCHC 33.0 g/dl (32.0-35.9) 05/31/17 06:15 RDW 14.8 % (11.9-15.9) 05/31/17 06:15 Plt Count 229 K/MM3 (134-434) D 05/31/17 06:15 MPV 8.1 fl (7.5-11.1) 05/31/17 06:15 Sodium 141 mmol/L (136-145) 05/31/17 06:15 Potassium 3.9 mmol/L (3.5-5.1) 05/31/17 06:15 Chloride 103 mmol/L (98-107) 05/31/17 06:15 Carbon Dioxide 29 mmol/L (21-32) 05/31/17 06:15 Anion Gap 9 (8-16) 05/31/17 06:15 BUN 14 mg/dL (7-18) D 05/31/17 06:15 Creatinine 0.9 mg/dL (0.7-1.3) D 05/31/17 06:15 Creat Clearance w eGFR > 60 (>60) 05/31/17 06:15 Random Glucose 115 mg/dL (74-106) H D 05/31/17 06:15 Calcium 8.4 mg/dL (8.5-10.1) L 05/31/17 06:15 Total Bilirubin 0.8 mg/dL (0.2-1.0) D 05/31/17 06:15 AST 48 U/L (15-37) H D 05/31/17 06:15 ALT 38 U/L (12-78) D 05/31/17 06:15 Alkaline Phosphatase 127 U/L (45-117) H 05/31/17 06:15 Total Protein 7.6 g/dl (6.4-8.2) 05/31/17 06:15 Albumin 3.7 g/dl (3.4-5.0) 05/31/17 06:15 Urine Color Muna 05/30/17 23:10 Urine Appearance Turbid 05/30/17 23:10 Urine pH 5.0 (5.0-8.0) 05/30/17 23:10 Ur Specific [place] 1.019 (1.001-1.035) 05/30/17 23:10 Urine Protein Negative (NEGATIVE) 05/30/17 23:10 Urine Glucose (UA) Negative (NEGATIVE) 05/30/17 23:10 Urine Ketones Negative (NEGATIVE) 05/30/17 23:10 Urine Blood 1+ (NEGATIVE) H 05/30/17 23:10 Urine Nitrite Positive (NEGATIVE) 05/30/17 23:10 Urine Bilirubin Negative (NEGATIVE) 05/30/17 23:10 Urine Urobilinogen Negative mg/dL (0.2-1.0) 05/30/17 23:10 Ur Leukocyte Esterase Trace (NEGATIVE) 05/30/17 23:10 Urine WBC (Auto) 23 /hpf (3-5) 05/30/17 23:10 Urine RBC (Auto) 12 /hpf (0-3) 05/30/17 23:10 Urine Bacteria Few /hpf (NONE SEEN) 05/30/17 23:10 Urine Mucus Rare 05/30/17 23:10 RPR Titer Nonreactive (NONREACTIVE) 05/31/17 06:15 Assessment: 06/01/17 12:38 WITHDRAWAL SYMPTOM Plan: CONTINUE DETOX,REPEAT UA R/O UTI
[2017-06-01] MEDS: IBUPROFEN 400 MG TABLET (FP) PO PRN (18:11)
[2017-06-01] MEDS: chlordiazePOXIDE 5 MG CAPSULE PO SCH (22:54)
[2017-06-01] MEDS: THIAMINE HCL 100 MG TABLET (FP) PO SCH (22:54)
[2017-06-01] MEDS: LIDOCAINE PATCH REMOVAL MC SCH (23:07)
[2017-06-02] MEDS: chlordiazePOXIDE HCL 25 MG CAPSULE PO PRN (02:37)
[2017-06-02] MEDS: ALBUTEROL SO4 18 GM HFA INHALER IH PRN ×4 (02:38→23:14)
[2017-06-02] MEDS: IBUPROFEN 400 MG TABLET (FP) PO PRN ×2 (02:40→15:25)
[2017-06-02] MEDS: chlordiazePOXIDE 5 MG CAPSULE PO SCH ×3 (06:11→18:00)
[2017-06-02] MEDS ORDERED: METHADONE HCL 5 MG TABLET ONE (06:13)
[2017-06-02] MEDS ORDERED: METHADONE HCL 40 MG DISPERSABLE TABLET ONE (06:13)
[2017-06-02] MEDS ORDERED: METHADONE HCL 10 MG TABLET ONE (06:14)
[2017-06-02] MEDS: METHADONE 120 MG, METHADONE 20 MG, METHADONE 5 MG PO SCH (06:15)
[2017-06-02] MEDS: GABAPENTIN 100 MG CAPSULE (FP) PO SCH ×3 (06:15→23:13)
[2017-06-02] MEDS: METHOCARBAMOL 500 MG TABLET PO SCH ×3 (06:15→23:13)
--- NOTE | 2017-06-02 10:51 | PN ---
BHS Progress Note (SOAP) Subjective: alert oriented x 3 calm no tremor less sweat Objective: 06/02/17 10:50 Vital Signs Temperature 97.4 F L 06/02/17 00:02 Pulse Rate 79 06/02/17 06:07 Respiratory Rate 16 06/02/17 06:07 Blood Pressure 126/74 06/02/17 06:07 O2 Sat by Pulse Oximetry (%) Laboratory Last Values WBC 6.5 K/mm3 (4.0-10.0) D 05/31/17 06:15 RBC 3.95 M/mm3 (4.00-5.60) L 05/31/17 06:15 Hgb 12.6 GM/dL (11.7-16.9) 05/31/17 06:15 Hct 38.2 % (35.4-49) 05/31/17 06:15 MCV 96.8 fl (80-96) H 05/31/17 06:15 MCH 31.9 pg (25.7-33.7) 05/31/17 06:15 MCHC 33.0 g/dl (32.0-35.9) 05/31/17 06:15 RDW 14.8 % (11.9-15.9) 05/31/17 06:15 Plt Count 229 K/MM3 (134-434) D 05/31/17 06:15 MPV 8.1 fl (7.5-11.1) 05/31/17 06:15 Sodium 141 mmol/L (136-145) 05/31/17 06:15 Potassium 3.9 mmol/L (3.5-5.1) 05/31/17 06:15 Chloride 103 mmol/L (98-107) 05/31/17 06:15 Carbon Dioxide 29 mmol/L (21-32) 05/31/17 06:15 Anion Gap 9 (8-16) 05/31/17 06:15 BUN 14 mg/dL (7-18) D 05/31/17 06:15 Creatinine 0.9 mg/dL (0.7-1.3) D 05/31/17 06:15 Creat Clearance w eGFR > 60 (>60) 05/31/17 06:15 Random Glucose 115 mg/dL (74-106) H D 05/31/17 06:15 Calcium 8.4 mg/dL (8.5-10.1) L 05/31/17 06:15 Total Bilirubin 0.8 mg/dL (0.2-1.0) D 05/31/17 06:15 AST 48 U/L (15-37) H D 05/31/17 06:15 ALT 38 U/L (12-78) D 05/31/17 06:15 Alkaline Phosphatase 127 U/L (45-117) H 05/31/17 06:15 Total Protein 7.6 g/dl (6.4-8.2) 05/31/17 06:15 Albumin 3.7 g/dl (3.4-5.0) 05/31/17 06:15 Urine Color Muna 05/30/17 23:10 Urine Appearance Turbid 05/30/17 23:10 Urine pH 5.0 (5.0-8.0) 05/30/17 23:10 Ur Specific [place] 1.019 (1.001-1.035) 05/30/17 23:10 Urine Protein Negative (NEGATIVE) 05/30/17 23:10 Urine Glucose (UA) Negative (NEGATIVE) 05/30/17 23:10 Urine Ketones Negative (NEGATIVE) 05/30/17 23:10 Urine Blood 1+ (NEGATIVE) H 05/30/17 23:10 Urine Nitrite Positive (NEGATIVE) 05/30/17 23:10 Urine Bilirubin Negative (NEGATIVE) 05/30/17 23:10 Urine Urobilinogen Negative mg/dL (0.2-1.0) 05/30/17 23:10 Ur Leukocyte Esterase Trace (NEGATIVE) 05/30/17 23:10 Urine WBC (Auto) 23 /hpf (3-5) 05/30/17 23:10 Urine RBC (Auto) 12 /hpf (0-3) 05/30/17 23:10 Urine Bacteria Few /hpf (NONE SEEN) 05/30/17 23:10 Urine Mucus Rare 05/30/17 23:10 RPR Titer Nonreactive (NONREACTIVE) 05/31/17 06:15 lab noted Assessment: 06/02/17 10:51 mild withdrawal sx Plan: medically supervised detox
[2017-06-02] MEDS: buPROPion HCL 100 MG TABLET PO SCH (10:54)
[2017-06-02] MEDS: NICOTINE 21 MG/24 HOURS TOPICAL PATCH TD SCH (10:54)
[2017-06-02] MEDS: PRENATAL VITAMINS W/ FOLIC ACID TABLET (FP) PO SCH (10:54)
[2017-06-02] MEDS: BACITRACIN 0.9 GM PACKET TP SCH ×2 (10:54→23:12)
[2017-06-02] MEDS: LIDOCAINE 5% TOPICAL PATCH TP SCH (13:13)
[2017-06-02 19:26] LABS: URINE APPEARANCE CLEAR; URINE BILIRUBIN NEGATIVE (NEGATIVE); URINE BLOOD NEGATIVE (NEGATIVE); URINE COLOR LTYELLOW; URINE GLUCOSE (UA) NEGATIVE (NEGATIVE); URINE KETONE NEGATIVE (NEGATIVE); URINE LEUK ESTERASE 1+ (NEGATIVE); URINE NITRITE NEGATIVE (NEGATIVE); URINE PROTEIN NEGATIVE (NEGATIVE); URINE UROBILINOGEN NEGATIVE mg/dL (0.2-1.0)
[2017-06-02 19:32] LABS: URINE BACTERIA RARE /hpf (NONE SEEN); URINE HYALINE CAST 1 /lpf
[2017-06-02] MEDS: THIAMINE HCL 100 MG TABLET (FP) PO SCH (23:12)
[2017-06-02] MEDS: chlordiazePOXIDE HCL 10 MG CAPSULE PO SCH (23:13)
[2017-06-02] MEDS: LIDOCAINE PATCH REMOVAL MC SCH (23:14)
[2017-06-03] MEDS ORDERED: METHADONE HCL 5 MG TABLET ONE (04:26)
[2017-06-03] MEDS ORDERED: METHADONE HCL 40 MG DISPERSABLE TABLET ONE (04:27)
[2017-06-03] MEDS ORDERED: METHADONE HCL 10 MG TABLET ONE (04:28)
[2017-06-03] MEDS: chlordiazePOXIDE HCL 10 MG CAPSULE PO SCH (05:42)
[2017-06-03] MEDS: METHOCARBAMOL 500 MG TABLET PO SCH (05:42)
[2017-06-03] MEDS: METHADONE 120 MG, METHADONE 20 MG, METHADONE 5 MG PO SCH (05:42)
[2017-06-03] MEDS: GABAPENTIN 100 MG CAPSULE (FP) PO SCH (05:42)
[2017-06-03 06:54] VITALS: BP 138/94; PULSE 88; TEMP 96.9
--- NOTE | 2017-06-03 09:19 | DS ---
[facility] Detox Discharge Summary Admission Date: 05/30/17 Discharge Date: 06/03/17 - History Present History: Alcohol Dependence Additional Comments: follow up with after care program as arrangement Pertinent Past History: asthma copd hepatitis c hypertension nicotine dependence methadone maintenance therapy patient left sciatica - Physical Exam Results Vital Signs: Vital Signs Temperature 96.9 F L 06/03/17 06:00 Pulse Rate 88 06/03/17 06:00 Respiratory Rate 18 06/03/17 06:00 Blood Pressure 138/94 06/03/17 06:00 O2 Sat by Pulse Oximetry (%) Pertinent Admission Physical Exam Findings: withdrawal symptom and finding - Treatment Hospital Course: Detox Protocol Followed, Detoxed Safely, Responded well, Discharged Condition Good Patient has Accepted [facility] - Medication Discharge Medications: Ambulatory Orders Albuterol Sulfate Inhaler - [Ventolin HFA Inhaler -] 2 inh IH Q4H PRN #1 inh Bupropion HCl [Wellbutrin -] 200 mg PO DAILY #30 tablet 05/30/17 - Diagnosis (1) Alcohol dependence with uncomplicated withdrawal Current Visit: Yes Status: Acute (2) Nicotine dependence Current Visit: Yes Status: Acute Qualifiers: Nicotine product type: cigarettes Substance use status: in withdrawal Qualified Code(s): F17.213 - Nicotine dependence, cigarettes, with withdrawal (3) Asthma Current Visit: Yes Status: Chronic Qualifiers: Asthma severity: mild Asthma persistence: intermittent Asthma complication type: with status asthmaticus Qualified Code(s): J45.22 - Mild intermittent asthma with status asthmaticus (4) COPD (chronic obstructive pulmonary disease) Current Visit: Yes Status: Chronic Qualifiers: COPD type: emphysema Emphysema type: panlobular Qualified Code(s): J43.1 - Panlobular emphysema (5) Hepatitis C Current Visit: Yes Status: Chronic Qualifiers: Viral hepatitis chronicity: chronic Hepatic coma status: without hepatic coma Qualified Code(s): B18.2 - Chronic viral hepatitis C (6) Hypertension Current Visit: Yes Status: Chronic Qualifiers: Hypertension type: unspecified secondary hypertension Qualified Code(s): I15.9 - Secondary hypertension, unspecified (7) Methadone maintenance therapy patient Current Visit: Yes Status: Chronic (8) Sciatica, left side Current Visit: Yes Status: Chronic (9) Low back pain Current Visit: No Status: Chronic - AMA Did Patient Leave Against Medical Advice: No
[2017-06-03] MEDS: PRENATAL VITAMINS W/ FOLIC ACID TABLET (FP) PO SCH (09:55)
[2017-06-03] MEDS: buPROPion HCL 100 MG TABLET PO SCH (09:55)
[2017-06-03] MEDS: BACITRACIN 0.9 GM PACKET TP SCH (09:55)
[2017-06-03] MEDS: LIDOCAINE 5% TOPICAL PATCH TP SCH (09:56)
== END 2017-06-03 10:18 | disposition home or self-care (01) | DRG 773 ==
LOC: YASAS 12:09 → Y6N 15:04
PROVIDERS: ADMIT Internal Medicine; ATTEND Internal Medicine
PROC: HZ2ZZZZ Detoxification Services for Substance Abuse Treatment (ICD-10-PCS; principal; 2017-05-30)
DX: F10.230 Alcohol dependence with withdrawal, uncomplicated (principal); F11.20 Opioid dependence, uncomplicated; F17.213 Nicotine dependence, cigarettes, with withdrawal; F33.9 Major depressive disorder, recurrent, unspecified; J45.22 Mild intermittent asthma with status asthmaticus; J43.1 Panlobular emphysema; B18.2 Chronic viral hepatitis C; I15.9 Secondary hypertension, unspecified; M54.42 Lumbago with sciatica, left side; R00.0 Tachycardia, unspecified
CPT/HCPCS: 36415; 80053; 81003; 81015; 85027; 86593; 93005; 93010